=== PATIENT | female | born 1990 | race African-American/Black ===

== ENCOUNTER 2016-04-08 10:00 | Emergency (ER) | payer MEDICAID ==
[2016-04-08] MEDS ORDERED: ASPIRIN 81 MG TABLET, CHEWABLE PO ONE (10:17)
--- NOTE | 2016-04-08 10:19 | ER Document Report ---
ED Medical Screen (RME) - General Stated Complaint: CHEST PAIN,NAUSEA Time seen by provider: 10:13 Mode of Arrival: Ambulatory Information source: Patient Notes: 26-year-old smoker, hypertensive, asthmatic female complaining of retrosternal left-sided chest pain that woke her up at 9:00. The pain has been intermittent lasting 20-30 minutes for 3 days. She is moaning, rocking, shaking her hand stating she is not anxious but the pain is 5/5. Taking deep breaths makes it better. No family history of IN or coronary artery disease. Lungs are clear and triaged. I have greeted and performed a rapid initial assessment of this patient. A comprehensive ED assessment, evaluation of the patient, analysis of test results , and completion of the medical decision making process will be contacted by additional ED providers. TRAVEL OUTSIDE OF THE [place] IN LAST 30 DAYS: No - Related Data Allergies/Adverse Reactions: No Known Allergies Allergy (Verified 10/01/13 12:05) Past Medical History - Past Medical History Cardiac Medical History: Reports: Hx Hypertension Pulmonary Medical History: Reports: Hx Asthma Past Surgical History: Reports: Hx Section - Immunizations Hx Diphtheria, Pertussis, Tetanus Vaccination: Yes Physical Exam - Vital signs Vitals: Temp Pulse Resp BP Pulse Ox 97.9 F 72 20 149/101 H 100 04/08/16 10:12 04/08/16 10:12 04/08/16 10:12 04/08/16 10:12 04/08/16 10:12 Course - Vital Signs Vital signs: Temp Pulse Resp BP Pulse Ox 97.9 F 74 20 149/101 H 100 04/08/16 10:14 04/08/16 10:14 04/08/16 10:12 04/08/16 10:14 04/08/16 10:14
--- NOTE | 2016-04-08 11:14 | EKG REPORT ---
SEVERITY:- NORMAL ECG - SINUS RHYTHM : Confirmed by: Yaniv Watts MD 08-Apr-2016 11:14:06
[2016-04-08 11:15] LABS: ABSOLUTE EOSINOPHILS # (AUTO) 0.5 10^3/uL (0.0-0.6); ABSOLUTE LYMPHOCYTES (AUTO) 1.5 10^3/uL (0.5-4.7); ABSOLUTE MONOCYTES (AUTO) 0.5 10^3/uL (0.1-1.4); ABSOLUTE NEUT (AUTO) 1.7 10^3/uL (1.7-8.2); BASOPHILS % (AUTO) 0.7 % (0-2); EOSINOPHILS % (AUTO) 12.9 % (0-6); HEMATOCRIT 32.8 % (36.0-47.0); HEMOGLOBIN 10.8 g/dL (12.0-15.5); HGB HCT DIFFERENCE -0.4; LYMPHOCYTES % (AUTO) 34.7 % (13-45); MEAN CORPUSCULAR HEMOGLOBIN 28.7 pg (27.0-33.4); MEAN CORPUSCULAR HGB CONC 32.8 g/dL (32.0-36.0); MEAN CORPUSCULAR VOLUME 87 fl (80-97); MONOCYTES % (AUTO) 11.9 % (3-13); RED BLOOD COUNT 3.76 10^6/uL (3.72-5.28); RED CELL DISTRIBUTION WIDTH 15.3 % (11.5-14.0); SEGMENTED NEUTROPHILS % (AUTO) 39.8 % (42-78); WHITE BLOOD COUNT 4.3 10^3/uL (4.0-10.5)
[2016-04-08 11:25] LABS: ALANINE AMINOTRANSFERASE 24 U/L (9-52); ALBUMIN 3.8 g/dL (3.5-5.0); ALKALINE PHOSPHATASE 160 U/L (38-126); ANION GAP 7 (5-19); ASPARTATE AMINO TRANSFERASE 49 U/L (14-36); BILIRUBIN,TOTAL 0.9 mg/dL (0.2-1.3); BLOOD UREA NITROGEN 12 mg/dL (7-20); CALCIUM 8.9 mg/dL (8.4-10.2); CARBON DIOXIDE 24 mmol/L (22-30); CHLORIDE 107 mmol/L (98-107); CREATINE KINASE 151 U/L (30-135); CREATININE RESULT 0.72 mg/dL (0.52-1.25); GLUCOSE 75 mg/dL (75-110); POTASSIUM 4.3 mmol/L (3.6-5.0); SODIUM 138.2 mmol/L (137-145); TOTAL PROTEIN 7.7 g/dL (6.3-8.2)
[2016-04-08 11:37] LABS: CREATINE KINASE MB < 0.22 ng/mL (<4.55); TROPONIN I < 0.012 ng/mL
[2016-04-08] MEDS ORDERED: IPRATROPIUM/ALBUTEROL 0.5-2.5 MG/3 ML AMPUL NEB ONE (11:45)
--- NOTE | 2016-04-08 11:46 | ER Document Report ---
ED General - General Chief Complaint: Chest Pain Stated Complaint: CHEST PAIN,NAUSEA Time seen by provider: 11:43 Mode of Arrival: Ambulatory Information source: Patient Notes: This is a 26-year-old female with a history of hypertension, asthma presents to the emergency room with left-sided, nonradiating, sharp chest pain. Patient states that the pain is worse with palpation and better with deep inspirations. She denies any shortness of breath, abdominal pain, calf pain or swelling. Patient states she did feel little nauseated yesterday. TRAVEL OUTSIDE OF THE [place] IN LAST 30 DAYS: No - HPI Onset: Last week Onset/Duration: Gradual Quality of pain: Sharp Severity: Mild Pain Level: 1 Associated symptoms: Chills, Nonproductive cough. denies: Fever, Shortness of breath Exacerbated by: Denies Relieved by: Denies Similar symptoms previously: Yes Recently seen / treated by doctor: Yes - Related Data Allergies/Adverse Reactions: No Known Allergies Allergy (Verified 10/01/13 12:05) Past Medical History - General Information source: Patient - Social History Smoking Status: Former Smoker Cigarette use (# per day): No Chew tobacco use (# tins/day): No Frequency of alcohol use: None Drug Abuse: None Lives with: Family Family History: Reviewed & Not Pertinent Patient has suicidal ideation: No Patient has homicidal ideation: No - Past Medical History Cardiac Medical History: Reports: Hx Hypertension Pulmonary Medical History: Reports: Hx Asthma Neurological Medical History: Reports: None Endocrine Medical History: Reports: None Renal/ Medical History: Denies: Hx Peritoneal Dialysis Malignancy Medical History: Reports: None GI Medical History: Reports: None Musculoskeltal Medical History: Reports None Skin Medical History: Reports None Psychiatric Medical History: Reports: None Traumatic Medical History: Reports: None Infectious Medical History: Reports: None Past Surgical History: Reports: Hx Section - Immunizations Hx Diphtheria, Pertussis, Tetanus Vaccination: Yes Review of Systems - Review of Systems Constitutional: denies: Chills, Fever EENT: No symptoms reported Cardiovascular: See HPI Respiratory: See HPI Gastrointestinal: No symptoms reported Genitourinary: No symptoms reported Female Genitourinary: No symptoms reported Musculoskeletal: See HPI Skin: No symptoms reported Hematologic/Lymphatic: No symptoms reported Neurological/Psychological: No symptoms reported Physical Exam - Vital signs Vitals: Temp Pulse Resp BP Pulse Ox 97.9 F 72 20 149/101 H 100 04/08/16 10:12 04/08/16 10:12 04/08/16 10:12 04/08/16 10:12 04/08/16 10:12 Notes: Physical exam: GENERAL: 26-year-old female, alert and oriented 3, no acute distress. Oxygen saturation 100% on room air. HEAD: Atraumatic, normocephalic. EYES: Pupils equal round and reactive to light, extraocular movements intact, sclera anicteric, conjunctiva are normal. ENT: TMs normal, nares patent, oropharynx clear without exudates. Moist mucous membranes. NECK: Normal range of motion, supple without lymphadenopathy or JVD. LUNGS: Breath sounds clear to auscultation bilaterally and equal. No wheezes rales or rhonchi. Chest wall: Patient does have point tenderness over the anterior portion of the chest wall. There is no crepitus. HEART: Regular rate and rhythm without murmurs, rubs or gallops. ABDOMEN: Soft, normoactive bowel sounds. No tenderness to palpation. No guarding, no rebound. No masses appreciated. EXTREMITIES: Normal range of motion, no pitting or edema. No clubbing or cyanosis. NEUROLOGICAL: Cranial nerves II through XII grossly intact. Normal speech, normal gait. PSYCH: Normal mood, normal affect. SKIN: Warm, Dry, normal turgor, no rashes or lesions noted. Course - Vital Signs Vital signs: Temp Pulse Resp BP Pulse Ox 98.5 F 74 20 135/97 H 100 04/08/16 15:25 04/08/16 10:14 04/08/16 15:25 04/08/16 15:25 04/08/16 15:25 - Laboratory Result Diagrams: 04/08/16 10:45 04/08/16 10:45 Laboratory results interpreted by me: 04/08/16 04/08/16 10:45 10:45 Hgb 10.8 L Hct 32.8 L RDW 15.3 H Seg Neutrophils % 39.8 L Eosinophils % 12.9 H AST 49 H Alkaline Phosphatase 160 H Creatine Kinase 151 H - Diagnostic Test Radiology reviewed: Image reviewed, Reports reviewed - Chest x-ray shows no infiltrates - EKG Interpretation by Or Rate: Normal Rhythm: NSR - EKG shows normal sinus rhythm with a ventricular rate of 71, no acute ST-T wave changes Discharge - Discharge Clinical Impression: chest wall pain, viral syndrome Condition: Stable Disposition: HOME, SELF-CARE Instructions: Chest Wall Pain ([facility]) Additional Instructions: Rest, drink plenty of fluids, take ibuprofen. Take Percocet as needed for pain not relieved with the ibuprofen. Return to the emergency room for worsening pain, shortness of breath or any concerns he getting worse. Prescriptions: Oxycodone HCl/Acetaminophen [Percocet 5-325 mg Tablet] 1 - 2 tab PO ASDIR PRN # 15 tablet PRN Reason: Forms: Elevated Blood Pressure, Return to Work
[2016-04-08 15:34] VITALS: BP 135/97
== END 2016-04-08 15:34 | disposition home or self-care (01) ==
LOC: ER 10:00
DX: R07.89 Other chest pain (principal); B34.9 Viral infection, unspecified; R11.0 Nausea; I10 Essential (primary) hypertension; J45.909 Unspecified asthma, uncomplicated; Z87.891 Personal history of nicotine dependence
CPT/HCPCS: 93005; 94640; 99285; 36415; 82553; 82550; 84702; 85025; 80053; 84484; 85379; 71020; 93010; J7620

== ENCOUNTER → 2016-06-19 | Outpatient (CLI) | payer MEDICAID ==
[2016-06-19 20:27] LABS: CHLAM PCR NOT DETECTED (NOT DETECT)
== END ==
LOC: LAB 18:52
PROVIDERS: ATTEND Nurse Practitioner Acute Care
DX: Z20.2 Contact with and (suspected) exposure to infections with a predominantly sexual mode of transmission (principal)
CPT/HCPCS: 87210; 87491; 87591

== ENCOUNTER 2016-08-20 16:09 | Emergency (ER) | payer MEDICAID ==
[2016-08-20] MEDS ORDERED: ONDANSETRON 4 MG TAB.RAPDIS PO ONE (18:42)
[2016-08-20] MEDS ORDERED: ACETAMINOPHEN 325 MG TABLET PO ONE (18:42)
--- NOTE | 2016-08-20 19:55 | RADIOLOGY REPORT (SQ) ---
EXAM DESCRIPTION: CT HEAD WITHOUT COMPLETED DATE/TIME: 08/20/2016 7:48 pm REASON FOR STUDY: fall, h/i COMPARISON: None. TECHNIQUE: Axial images acquired through the brain without intravenous contrast. Images reviewed wi th bone, brain and subdural windows. Images stored on PACS. All CT scanners at this facility use dose modulation, iterative reconstruction, and/or weight based d osing when appropriate to reduce radiation dose to as low as reasonably achievable (ALARA). [facility]: Dose Right [facility]: CareDose [facility]: Dose Right [facility]: Teradose 4D [facility]: Smart [employer] RADIATION DOSE: Up-to-date CT equipment and radiation dose reduction techniques were employed. CTDIv ol: 64.6 mGy. DLP: 1163 mGy-cm. mGy. LIMITATIONS: None. FINDINGS: VENTRICLES: Normal size and contour. CEREBRUM: No masses. No hemorrhage. No midline shift. Normal trevizo/white matter differentiation. N o evidence for acute infarction. CEREBELLUM: No masses. No hemorrhage. No alteration of density. No evidence for acute infarction. EXTRAAXIAL SPACES: No fluid collections. No masses. ORBITS AND GLOBE: No intra- or extraconal masses. Normal contour of globe without masses. CALVARIUM: No fracture. PARANASAL SINUSES: No fluid or mucosal thickening. SOFT TISSUES: No mass or hematoma. OTHER: No other significant finding. IMPRESSION: NORMAL BRAIN CT WITHOUT CONTRAST. TECHNICAL DOCUMENTATION: JOB ID: [id number] Quality ID # [id number]: Final reports with documentation of one or more dose reduction techniques (e.g., Au tomated exposure control, adjustment of the mA and/or kV according to patient size, use of iterative reconstruction technique) 2010 [employer]- All Rights Reserved
[2016-08-20 20:09] LABS: ABSOLUTE EOSINOPHILS # (AUTO) 0.5 10^3/uL (0.0-0.6); ABSOLUTE LYMPHOCYTES (AUTO) 2.2 10^3/uL (0.5-4.7); ABSOLUTE MONOCYTES (AUTO) 0.7 10^3/uL (0.1-1.4); ABSOLUTE NEUT (AUTO) 2.7 10^3/uL (1.7-8.2); BASOPHILS % (AUTO) 0.5 % (0-2); EOSINOPHILS % (AUTO) 8.4 % (0-6); HEMATOCRIT 36.5 % (36.0-47.0); HEMOGLOBIN 11.4 g/dL (12.0-15.5); HGB HCT DIFFERENCE -2.3; LYMPHOCYTES % (AUTO) 35.4 % (13-45); MEAN CORPUSCULAR HEMOGLOBIN 26.5 pg (27.0-33.4); MEAN CORPUSCULAR HGB CONC 31.2 g/dL (32.0-36.0); MEAN CORPUSCULAR VOLUME 85 fl (80-97); MONOCYTES % (AUTO) 11.9 % (3-13); RED BLOOD COUNT 4.29 10^6/uL (3.72-5.28); RED CELL DISTRIBUTION WIDTH 16.7 % (11.5-14.0); SEGMENTED NEUTROPHILS % (AUTO) 43.8 % (42-78); WHITE BLOOD COUNT 6.1 10^3/uL (4.0-10.5)
[2016-08-20 20:26] LABS: ANION GAP 12 (5-19); BLOOD UREA NITROGEN 12 mg/dL (7-20); CALCIUM 9.5 mg/dL (8.4-10.2); CARBON DIOXIDE 23 mmol/L (22-30); CHLORIDE 105 mmol/L (98-107); CREATININE RESULT 0.79 mg/dL (0.52-1.25); GLUCOSE 88 mg/dL (75-110); POTASSIUM 4.2 mmol/L (3.6-5.0); SODIUM 140.1 mmol/L (137-145)
[2016-08-20 20:33] LABS: APPEARANCE,URINE CLEAR; BILIRUBIN,URINE NEGATIVE (NEGATIVE); GLUCOSE, URINE NEGATIVE (NEGATIVE); KETONES,URINE TRACE mg/dL (NEGATIVE); LEUKOCYTE ESTERASE,URINE NEGATIVE (NEGATIVE); NITRITE,URINE NEGATIVE (NEGATIVE); PROTEIN,URINE NEGATIVE (NEGATIVE); URINE SPECIFIC GRAVITY 1.026
--- NOTE | 2016-08-20 20:42 | ER Document Report ---
ED General - General Chief Complaint: Pain All Over Stated Complaint: PAIN ALL OVER Time Seen by Provider: 08/20/16 18:14 Notes: patient is a 26 year old female who presents with abdominal pain and fall. patient states she fell at work yesterday down a flight of stairs, she admits to headache and knee pain, body aches all over but able to move all extremities without difficulty, no abnl sensation TRAVEL OUTSIDE OF THE [place] IN LAST 30 DAYS: No - HPI Onset: Yesterday - fell at work down stairs, unsure of how many, admits to h/i. Unsure of LOC. Admits to confusion, dizzyness, nausea without vomiting - Related Data Allergies/Adverse Reactions: No Known Allergies Allergy (Verified 08/20/16 16:48) Past Medical History - Social History Smoking Status: Unknown if Ever Smoked Family History: Reviewed & Not Pertinent Patient has suicidal ideation: No Patient has homicidal ideation: No - Past Medical History Cardiac Medical History: Reports: Hx Hypertension Pulmonary Medical History: Reports: Hx Asthma Renal/ Medical History: Denies: Hx Peritoneal Dialysis Past Surgical History: Reports: Hx Section - Immunizations Hx Diphtheria, Pertussis, Tetanus Vaccination: Yes Review of Systems - Review of Systems Constitutional: No symptoms reported Cardiovascular: No symptoms reported Respiratory: No symptoms reported Gastrointestinal: No symptoms reported Musculoskeletal: No symptoms reported Neurological/Psychological: See HPI Physical Exam - Vital signs Vitals: Temp Pulse Resp BP Pulse Ox 98.4 F 62 18 147/81 H 100 08/20/16 16:48 08/20/16 16:48 08/20/16 16:48 08/20/16 16:48 08/20/16 16:48 - Notes Notes: PHYSICAL EXAM GENERAL: Alert, interacts well. HEAD: Normocephalic, atraumatic. EYES: Pupils equal, round, and reactive to light. Extraocular movements intact. ENT: Oral mucosa moist, tongue midline. NECK: Full range of motion. Supple. Trachea midline. LUNGS: Clear to auscultation bilaterally, no wheezes, rales, or rhonchi. No respiratory distress. HEART: Regular rate and rhythm. No murmurs, gallops, or rubs. ABDOMEN: Soft, nondistended, nontender. No guarding, rebound, or rigidity.. Bowel sounds present in all 4 quadrants. EXTREMITIES: Moves all 4 extremities spontaneously. No edema, radial and dorsalis pedis pulses 2/4 bilaterally. No cyanosis. NEUROLOGICAL: Alert and oriented x4. Normal speech. PSYCH: Normal affect, normal mood. SKIN: Warm, dry, normal turgor. No rashes or lesions noted. Course - Re-evaluation Re-evalutation: 08/20/16 22:27 Patient does not have any focal neurologic deficits, nuchal rigidity, vital signs are within normal limits no papilledema. Patient is otherwise no acute distress and hemodynamically stable. Low index for suspicion of acute subarachnoid hemorrhage, meningitis or mass. Low suspicion for acute life- threatening etiology with intact neuro exam therefore no additional imaging or laboratory testing is indicated. Will discharge patient home with strict follow -up with PCP within the next week. - Vital Signs Vital signs: Temp Pulse Resp BP Pulse Ox 97.5 F 58 L 18 131/68 H 100 08/20/16 22:02 08/20/16 22:02 08/20/16 22:02 08/20/16 22:02 08/20/16 22:02 - Laboratory Result Diagrams: 08/20/16 19:55 08/20/16 19:55 Laboratory results interpreted by me: 08/20/16 08/20/16 19:55 19:55 Hgb 11.4 L MCH 26.5 L MCHC 31.2 L RDW 16.7 H Eosinophils % 8.4 H Urine Ketones TRACE H Urine Urobilinogen 4.0 H - Diagnostic Test Radiology reviewed: Image reviewed, Reports reviewed Discharge - Discharge Clinical Impression: Fall Condition: Good Disposition: HOME, SELF-CARE Instructions: Head Injury Precautions ([facility]), OTC Antihistamines ([facility]), Acetaminophen Additional Instructions: Follow up with your primary care physician in 3-5 days Forms: Return to Work
[2016-08-20 22:05] VITALS: BP 131/68
== END 2016-08-20 22:05 | disposition home or self-care (01) ==
LOC: ER 16:09
DX: R10.9 Unspecified abdominal pain (principal); R51 Headache; M25.569 Pain in unspecified knee; W10.9XXA Fall (on) (from) unspecified stairs and steps, initial encounter; Y99.0 Civilian activity done for income or pay; R42 Dizziness and giddiness; R41.0 Disorientation, unspecified; R11.2 Nausea with vomiting, unspecified; I10 Essential (primary) hypertension; J45.909 Unspecified asthma, uncomplicated
CPT/HCPCS: 99284; 36415; 84702; 85025; 80048; 81001; 70450; J3490; S0119

== ENCOUNTER 2016-10-26 18:51 | Emergency (ER) | payer MEDICAID ==
--- NOTE | 2016-10-26 19:50 | ER Document Report ---
ED General - General Chief Complaint: Abdominal Pain Stated Complaint: ABDOMINAL PAIN Time Seen by Provider: 10/26/16 19:32 TRAVEL OUTSIDE OF THE [place] IN LAST 30 DAYS: No - HPI Notes: Patient is a 26-year-old female presents the ED complaining of left lower pelvic discomfort 1 day, and home urine test positive yesterday. Patient states that she is a high-risk and usually requests rhogam because of her negative status. The pain does not radiate and is described as sharp. The pain is intermittent. Patient states that she is just trying to be cautious because of her medical history. Patient is otherwise eating and drinking without difficulties. She is urinating without any discomfort or bleeding. She denies any vaginal discharge or bleeding/odor. Her bowel movements have been regular. Denies any headache, fever, URI, sore throat, chest pain, palpitations, syncope, cough, shortness of breath, wheeze, dyspnea, nausea/vomiting/diarrhea, urinary retention, loss of control of bowel or bladder , numbness/tingling, or rash. - Related Data Allergies/Adverse Reactions: No Known Allergies Allergy (Verified 08/20/16 16:48) Past Medical History - Social History Smoking Status: Never Smoker Family History: Reviewed & Not Pertinent Patient has suicidal ideation: No Patient has homicidal ideation: No - Past Medical History Cardiac Medical History: Reports: Hx Hypertension Pulmonary Medical History: Reports: Hx Asthma Renal/ Medical History: Denies: Hx Peritoneal Dialysis Past Surgical History: Reports: Hx Section - Immunizations Hx Diphtheria, Pertussis, Tetanus Vaccination: Yes Review of Systems - Review of Systems Notes: REVIEW OF SYSTEMS: CONSTITUTIONAL : Denies fever, chills, or sweats. Denies recent illness. EENT: Denies eye, ear, throat, or mouth pain or symptoms. Denies nasal or sinus congestion or discharge. Denies throat, tongue, or mouth swelling or difficulty swallowing. CARDIOVASCULAR: Denies chest pain. Denies palpitations or racing or irregular heart beat. Denies ankle edema. RESPIRATORY: Denies cough, cold, or chest congestion. Denies shortness of breath, difficulty breathing, or wheezing. GASTROINTESTINAL: see hpi GENITOURINARY: Denies difficulty urinating, painful urination, burning, frequency, blood in urine, or discharge. FEMALE GENITOURINARY: Denies vaginal bleeding, heavy or abnormal periods, irregular periods. Denies vaginal discharge or odor. MUSCULOSKELETAL: Denies back or neck pain or stiffness. Denies joint pain or swelling. SKIN: Denies rash, lesions or sores. NEUROLOGICAL: Denies confusion or altered mental status. Denies passing out or loss of consciousness. Denies dizziness or lightheadedness. Denies headache. Denies weakness or paralysis or loss of use of either side. Denies problems with gait or speech. Denies sensory loss, numbness, or tingling. ALL OTHER SYSTEMS REVIEWED AND NEGATIVE. Dictation was performed using [employer] voice recognition software Physical Exam - Vital signs Vitals: Temp Pulse Resp BP Pulse Ox 98.7 F 62 20 152/86 H 96 10/26/16 18:58 10/26/16 18:58 10/26/16 18:58 10/26/16 18:58 10/26/16 18:58 Notes: PHYSICAL EXAMINATION: GENERAL: Well-appearing, well-nourished and in no acute distress. LUNGS: Breath sounds clear to auscultation bilaterally and equal. No wheezes rales or rhonchi. HEART: Regular rate and rhythm without murmurs ABDOMEN: Soft, nondistended abdomen. No guarding, no rebound. No masses appreciated. Normal bowel sounds present. CVA tenderness negative bilaterally. + mild tenderness to the left suprapubic area. No rigidity. Female : No inguinal adenopathy. External genitalia without erythema, lesions , or masses. Vaginal mucosa pink with white d/c. Cervix parous, pink, and without obv discharge. Uterus is smooth. No adnexal tenderness. Musculoskeletal: LE's b/l: FROM to passive/active. Strength 5+/5. Extremities: No cyanosis/clubbing/edema b/l. Peripheral pulses 2+. Capillary refill less than 3 seconds. NEUROLOGICAL: Normal speech, normal gait. Normal sensory, motor exams PSYCH: Normal mood, normal affect. SKIN: Warm, Dry, normal turgor, no rashes or lesions noted. Course - Re-evaluation Re-evalutation: 10/26/16 23:12 Patient is an afebrile, well-hydrated, 26-year-old female who presents the ED 6 weeks as well as having trichomonas, UTI, and bacterial vaginosis. Vitals are stable. PE otherwise unremarkable. CBC, CMP unremarkable. Urinalysis showed bacteria and probable UTI. Transvaginal ultrasound revealed no acute pathology and an intrauterine . Zithromax 1 g and Rocephin 250 mg given IM today. I will send her home with a prescription for Flagyl to take twice a day for 1 week. Patient will be notified if her chlamydia/ gonorrhea tests come back positive. Patient may also call back in the morning to find out the results. Low suspicion/risk for acute appendicitis, bowel obstruction, acute cholecystitis, acute cholangitis, perforated diverticulitis, incarcerated hernia, pancreatitis, perforated ulcer, peritonitis, sepsis, pelvic inflammatory disease, ectopic , tubo-ovarian abscess, ovarian torsion, or other systemic emergent condition at this time. Patient is aware that her condition can change from initial presentation and she needs to monitor symptoms closely and seek medical attention if any acute changes. Conservative measures otherwise for symptoms. Recheck with OBGYN next week. Recheck with your PCM in 2-3 days. Return to the ED with any worsening/ concerning symptoms otherwise as reviewed in discharge. Patient is in agreement. - Vital Signs Vital signs: Temp Pulse Resp BP Pulse Ox 98.7 F 62 20 152/86 H 96 10/26/16 18:58 10/26/16 18:58 10/26/16 18:58 10/26/16 18:58 10/26/16 18:58 - Laboratory Result Diagrams: 10/26/16 20:02 10/26/16 20:40 Laboratory results interpreted by me: 10/26/16 10/26/16 10/26/16 19:15 20:02 20:02 Hgb 11.6 L Hct 35.6 L RDW 17.4 H Monocytes % 14.1 H Eosinophils % 9.0 H Glucose Alkaline Phosphatase Serum HCG, Qual POSITIVE H Beta HCG, Quant Urine Urobilinogen 4.0 H Ur Leukocyte Esterase SMALL H 10/26/16 20:40 Hgb Hct RDW Monocytes % Eosinophils % Glucose 68 L Alkaline Phosphatase 128 H Serum HCG, Qual Beta HCG, Quant 84912.00 H Urine Urobilinogen Ur Leukocyte Esterase Procedures - Pelvic Exam Pelvic exam Time completed: 22:45 Cultures obtained: Yes Wet prep obtained: Yes Herpes culture obtained: No Foreign body removed: No Bimanual exam performed: Yes - neg Witnessed by: female pct Discharge - Discharge Clinical Impression: Trichomonas infection, Bacterial vaginosis UTI (urinary tract infection) Qualifiers: Urinary tract infection type: site unspecified Hematuria presence: without hematuria Qualified Code(s): N39.0 - Urinary tract infection, site not specified Condition: Stable Disposition: HOME, SELF-CARE Instructions: Urinary Tract Infection ([facility]), Metronidazole ([facility]), Trichomonas Infection ([facility]), Vaginosis, Bacterial ([facility]), Follow-Up Care ([facility]) Additional Instructions: Push fluids (i.e. water, cranberry juice) Proper hygenic technique Keep the skin clean Tylenol/ibuprofen as needed May use over the counter AZO for burning with urination Take medications as directed F/u with your PCM in 2-3 days for a recheck Recheck with your OBGYN next week Consider consult with Urology. Return to the ED with any worsening symptoms and/or development of fever, headache, chest pain, palpitations, syncope, shortness of breath, trouble breathing, abdominal pain, n/v/d, blood in stool/urine, loss of control of bowel /bladder, urinary retention, muscle weakness/paralysis, saddle anesthesia, numbness/tingling, or other worsening symptoms that are concerning to you. Prescriptions: Cephalexin Monohydrate [Keflex 500 mg Capsule] 500 mg PO BID #14 capsule Metronidazole [Flagyl] 500 mg PO BID #14 tablet Forms: Elevated Blood Pressure Referrals: [facility] [Provider Group] - Follow up in 3-5 days
[2016-10-26 20:13] LABS: ABSOLUTE BASOPHILS # (AUTO) 0.1 10^3/uL (0.0-0.2); ABSOLUTE EOSINOPHILS # (AUTO) 0.6 10^3/uL (0.0-0.6); ABSOLUTE LYMPHOCYTES (AUTO) 1.8 10^3/uL (0.5-4.7); ABSOLUTE MONOCYTES (AUTO) 0.9 10^3/uL (0.1-1.4); BASOPHILS % (AUTO) 0.9 % (0-2); HEMATOCRIT 35.6 % (36.0-47.0); HEMOGLOBIN 11.6 g/dL (12.0-15.5); HGB HCT DIFFERENCE -0.8; LYMPHOCYTES % (AUTO) 28.4 % (13-45); MEAN CORPUSCULAR HEMOGLOBIN 28.5 pg (27.0-33.4); MEAN CORPUSCULAR HGB CONC 32.6 g/dL (32.0-36.0); MEAN CORPUSCULAR VOLUME 87 fl (80-97); MONOCYTES % (AUTO) 14.1 % (3-13); RED BLOOD COUNT 4.08 10^6/uL (3.72-5.28); RED CELL DISTRIBUTION WIDTH 17.4 % (11.5-14.0); SEGMENTED NEUTROPHILS % (AUTO) 47.6 % (42-78); WHITE BLOOD COUNT 6.2 10^3/uL (4.0-10.5)
[2016-10-26 20:32] LABS: APPEARANCE,URINE SLIGHTLY-CLOUDY; BILIRUBIN,URINE NEGATIVE (NEGATIVE); GLUCOSE, URINE NEGATIVE (NEGATIVE); KETONES,URINE NEGATIVE (NEGATIVE); LEUKOCYTE ESTERASE,URINE SMALL (NEGATIVE); NITRITE,URINE NEGATIVE (NEGATIVE); PROTEIN,URINE NEGATIVE (NEGATIVE); URINE SPECIFIC GRAVITY 1.027
[2016-10-26 21:12] LABS: ALANINE AMINOTRANSFERASE 24 U/L (9-52); ALKALINE PHOSPHATASE 128 U/L (38-126); ANION GAP 13 (5-19); ASPARTATE AMINO TRANSFERASE 30 U/L (14-36); BILIRUBIN,DIRECT 0.3 mg/dL (0.0-0.4); BLOOD UREA NITROGEN 12 mg/dL (7-20); CALCIUM 9.9 mg/dL (8.4-10.2); CARBON DIOXIDE 23 mmol/L (22-30); CHLORIDE 103 mmol/L (98-107); CREATININE RESULT 0.76 mg/dL (0.52-1.25); GLUCOSE 68 mg/dL (75-110); POTASSIUM 4.4 mmol/L (3.6-5.0); SODIUM 138.7 mmol/L (137-145); TOTAL PROTEIN 7.7 g/dL (6.3-8.2)
--- NOTE | 2016-10-26 22:27 | RADIOLOGY REPORT (SQ) ---
EXAM DESCRIPTION: U/S OB TRANSVAG W/DOPPLER COMPLETED DATE/TIME: 10/26/2016 9:58 pm REASON FOR STUDY: LLQ pain, pt had home + pregn test COMPARISON: None. TECHNIQUE: Transvaginal static and realtime grayscale images acquired of the pelvis. Additional pravin cted spectral and color Doppler images recorded. All images stored on PACs. bHCG: Pending. LIMITATIONS: None. FINDINGS: FETUS: Living intrauterine . EGA: 6 weeks 4 days ERI: 06/17/2017 FHR: 118 beats per minute. SUBCHORIONIC BLEED: No. SIZE OF BLEED: Not applicable. UTERUS: No masses. No anomalies. CERVICAL LENGTH: 2.6 cm Closed. RIGHT ADNEXA: Normal ovary with normal vascular flow. No adnexal free fluid. No adnexal masses. LEFT ADNEXA: Normal ovary with normal vascular flow. Physiologic corpus luteal cyst identified. No adnexal free fluid. No adnexal masses. FREE FLUID: None. OTHER: No other significant finding. IMPRESSION: LIVING INTRAUTERINE . EGA 6 WEEKS 5 DAYS. Trimester of : First - 0 to 13 weeks. TECHNICAL DOCUMENTATION: JOB ID: [id number] [employer]- All Rights Reserved
[2016-10-26] MEDS ORDERED: LIDOCAINE 1% INJ-PF (10 MG/ML) 30 ML SDV INJ ONE (23:12)
[2016-10-26] MEDS ORDERED: AZITHROMYCIN 250 MG TABLET PO ONE (23:12)
[2016-10-26] MEDS ORDERED: CEFTRIAXONE INJ 1000 MG VIAL IM ONE ×2 (23:12→23:15)
[2016-10-27 00:26] LABS: CHLAM PCR NOT DETECTED (NOT DETECT)
[2016-10-27 00:54] VITALS: BP 142/80
== END 2016-10-26 23:55 | disposition home or self-care (01) ==
LOC: ER 18:51
DX: O23.591 Infection of other part of genital tract in pregnancy, first trimester (principal); B96.89 Other specified bacterial agents as the cause of diseases classified elsewhere; O23.41 Unspecified infection of urinary tract in pregnancy, first trimester; O98.311 Other infections with a predominantly sexual mode of transmission complicating pregnancy, first trimester; A59.9 Trichomoniasis, unspecified; O99.511 Diseases of the respiratory system complicating pregnancy, first trimester; O16.1 Unspecified maternal hypertension, first trimester; Z3A.01 Less than 8 weeks gestation of pregnancy
CPT/HCPCS: 99284; 96372; 86900; 86901; 36415; 87210; 86850; 84702; 83690; 84703; 85025; 80053; 81001; 87491; 87591; 76817; 93976; J2790; J0696; J3490

== ENCOUNTER 2016-12-11 16:07 | Emergency (ER) | payer MEDICAID ==
[2016-12-11] MEDS ORDERED: NORMAL SALINE 1000 ML 1,000 ML IV ONE ×2 (16:30→20:08)
--- NOTE | 2016-12-11 16:33 | ER Document Report ---
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 EMS was called and patient was brought to the emergency department. She states she still feels lightheaded. 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 She states that she has a history of high blood pressure and is supposed be taking medications but has not taken any medicine for her blood pressure in 4 months. This is because she was on lisinopril and cannot take it while she is currently . She states she has had no recent abdominal pain. No vaginal bleeding or discharge. She states she has a high risk because she is Rh-. She states she has had an ultrasound with this already at approximately 6 weeks and was told everything was okay. It was done in the clinic. She states she is currently about 16 weeks she believes. TRAVEL OUTSIDE OF THE [place] IN LAST 30 DAYS: No - Related Data Allergies/Adverse Reactions: No Known Allergies Allergy (Verified 12/11/16 16:16) Past Medical History - Social History Frequency of alcohol use: None Drug Abuse: None - Past Medical History Cardiac Medical History: Reports: Hx Hypertension Pulmonary Medical History: Reports: Hx Asthma Renal/ Medical History: Denies: Hx Peritoneal Dialysis Past Surgical History: Reports: Hx Section - Immunizations Hx Diphtheria, Pertussis, Tetanus Vaccination: Yes Physical Exam - Vital signs Vitals: Temp Pulse BP Pulse Ox 98.4 F 84 128/79 H 100 12/11/16 16:16 12/11/16 16:16 12/11/16 16:16 12/11/16 16:16 Course - Vital Signs Vital signs: Temp Pulse Resp BP Pulse Ox 98.4 F 84 128/79 H 100 12/11/16 16:16 12/11/16 16:16 12/11/16 16:16 12/11/16 16:16
[2016-12-11 16:51] LABS: ABSOLUTE EOSINOPHILS # (AUTO) 0.6 10^3/uL (0.0-0.6); ABSOLUTE LYMPHOCYTES (AUTO) 1.9 10^3/uL (0.5-4.7); ABSOLUTE MONOCYTES (AUTO) 0.7 10^3/uL (0.1-1.4); ABSOLUTE NEUT (AUTO) 4.2 10^3/uL (1.7-8.2); BASOPHILS % (AUTO) 0.4 % (0-2); EOSINOPHILS % (AUTO) 8.4 % (0-6); HEMATOCRIT 37.4 % (36.0-47.0); HEMOGLOBIN 12.6 g/dL (12.0-15.5); HGB HCT DIFFERENCE 0.4; LYMPHOCYTES % (AUTO) 25.3 % (13-45); MEAN CORPUSCULAR HEMOGLOBIN 30.6 pg (27.0-33.4); MEAN CORPUSCULAR HGB CONC 33.8 g/dL (32.0-36.0); MEAN CORPUSCULAR VOLUME 90 fl (80-97); MONOCYTES % (AUTO) 9.8 % (3-13); RED BLOOD COUNT 4.14 10^6/uL (3.72-5.28); RED CELL DISTRIBUTION WIDTH 17.5 % (11.5-14.0); SEGMENTED NEUTROPHILS % (AUTO) 56.1 % (42-78); WHITE BLOOD COUNT 7.5 10^3/uL (4.0-10.5)
[2016-12-11 17:12] LABS: ALANINE AMINOTRANSFERASE 34 U/L (9-52); ALBUMIN 3.9 g/dL (3.5-5.0); ALKALINE PHOSPHATASE 133 U/L (38-126); ANION GAP 12 (5-19); ASPARTATE AMINO TRANSFERASE 38 U/L (14-36); BILIRUBIN,DIRECT 0.2 mg/dL (0.0-0.4); BILIRUBIN,TOTAL 0.6 mg/dL (0.2-1.3); BLOOD UREA NITROGEN 11 mg/dL (7-20); CALCIUM 9.8 mg/dL (8.4-10.2); CARBON DIOXIDE 21 mmol/L (22-30); CHLORIDE 106 mmol/L (98-107); GLUCOSE 79 mg/dL (75-110); POTASSIUM 4.6 mmol/L (3.6-5.0); SODIUM 138.7 mmol/L (137-145); TOTAL PROTEIN 7.6 g/dL (6.3-8.2)
[2016-12-11 18:16] LABS: APPEARANCE,URINE CLOUDY; BILIRUBIN,URINE NEGATIVE (NEGATIVE); GLUCOSE, URINE NEGATIVE (NEGATIVE); KETONES,URINE NEGATIVE (NEGATIVE); LEUKOCYTE ESTERASE,URINE SMALL (NEGATIVE); NITRITE,URINE NEGATIVE (NEGATIVE); PROTEIN,URINE NEGATIVE (NEGATIVE); URINE SPECIFIC GRAVITY 1.031
--- NOTE | 2016-12-11 18:20 | EKG REPORT ---
SEVERITY:- NORMAL ECG - SINUS RHYTHM : Confirmed by: Tricia Garsia MD 11-Dec-2016 18:20:21
[2016-12-11] MEDS ORDERED: ONDANSETRON HCL INJ/PF 4 MG/2 ML SDV IV ONE (18:24)
[2016-12-11] MEDS ORDERED: FAMOTIDINE 20 MG TABLET PO ONE (18:24)
--- NOTE | 2016-12-11 18:25 | ER Document Report ---
ED General - General Chief Complaint: Low Blood Pressure Stated Complaint: POSSIBLE SYNCOPE Time Seen by Provider: 12/11/16 16:29 Mode of Arrival: Ambulatory Information source: Patient TRAVEL OUTSIDE OF THE [place] IN LAST 30 DAYS: No - HPI Notes: Presents to ER, A&Ox4, with concern for near syncope at work is and low blood pressure, 110/70. Reports prior to the episode that occurred when she was standing she experienced visual changes, lightheadedness, generalized bilateral numbness in fingers, and patient "blacking out". 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 Reports she is high risk due to being RH negative. Reports she has HTN and is on medication lisinopril 5 mg daily that she has been on since she last gave 2 years ago. Reports she is not taking any medications right now, for the past four months, due to being told that she cannot take it with her . Breaths even and unlabored. Speaking in clear and complete sentences. NAD noted. Patient does report occasional episodes of nausea and vomiting. The patient was standing at work when she started feeling lightheaded prior to the near syncopal event. Patient denies any headache, neck pain or back pain or chest pain or palpitations. There was no complete syncope. The patient reports no vaginal bleeding or discharge. Patient states she currently feels better. - Related Data Allergies/Adverse Reactions: No Known Allergies Allergy (Verified 12/11/16 16:16) Past Medical History - General Information source: Patient - Social History Smoking Status: Never Smoker Frequency of alcohol use: None Drug Abuse: None Family History: Reviewed & Not Pertinent - Past Medical History Cardiac Medical History: Reports: Hx Hypertension Pulmonary Medical History: Reports: Hx Asthma Renal/ Medical History: Denies: Hx Peritoneal Dialysis Past Surgical History: Reports: Hx Section - Immunizations Hx Diphtheria, Pertussis, Tetanus Vaccination: Yes Review of Systems - Review of Systems Notes: REVIEW OF SYSTEMS: CONSTITUTIONAL : Denies fever, chills, or sweats. EENT: Denies eye, ear, throat, or mouth pain or symptoms. Denies nasal or sinus congestion or discharge. Denies throat, tongue, or mouth swelling or difficulty swallowing. CARDIOVASCULAR: Denies chest pain. Denies palpitations or racing or irregular heart beat. Denies ankle edema. RESPIRATORY: Denies cough, cold, or chest congestion. Denies shortness of breath, difficulty breathing, or wheezing. GASTROINTESTINAL: Denies abdominal pain or distention. Denies is is is diarrhea. Denies blood in vomitus, stools, or per rectum. Denies black, tarry stools. Denies constipation. GENITOURINARY: Denies difficulty urinating, painful urination, burning, frequency, blood in urine, or discharge. FEMALE GENITOURINARY: Denies vaginal bleeding, heavy or abnormal periods, irregular periods. Denies vaginal discharge or odor. MUSCULOSKELETAL: Denies back or neck pain or stiffness. Denies joint pain or swelling. SKIN: Denies rash, lesions or sores. HEMATOLOGIC : Denies easy bruising or bleeding. LYMPHATIC: Denies swollen, enlarged glands. NEUROLOGICAL: Denies confusion or altered mental status. Denies headache. Denies weakness or paralysis or loss of use of either side. Denies problems with gait or speech. Denies sensory loss, numbness, or tingling. Denies seizures. PSYCHIATRIC: Denies anxiety or stress. Denies depression, suicidal ideation, or homicidal ideation. ALL OTHER SYSTEMS REVIEWED AND NEGATIVE. Dictation was performed using [employer] voice recognition software Physical Exam - Vital signs Vitals: Temp Pulse BP Pulse Ox 98.4 F 84 128/79 H 100 12/11/16 16:16 12/11/16 16:16 12/11/16 16:16 12/11/16 16:16 - Notes Notes: PHYSICAL EXAMINATION: GENERAL: Well-appearing, well-nourished and in no acute distress. HEAD: Atraumatic, normocephalic. EYES: Pupils equal round and reactive to light, extraocular movements intact, conjunctiva are normal. ENT: Nares patent, oropharynx clear without exudates. Somewhat dry mucous membranes. NECK: Normal range of motion, supple without lymphadenopathy LUNGS: Breath sounds equal to auscultation bilaterally and equal. No rales or rhonchi. Scant wheeze consistent with previous history of asthma. HEART: Regular rate and rhythm without murmurs ABDOMEN: Soft, nontender abdomen. No guarding, no rebound. No masses appreciated. Gravid . Consistent with 14-15 weeks. Female : deferred Musculoskeletal: Normal range of motion, no pitting or edema. No cyanosis. NEUROLOGICAL: Cranial nerves grossly intact. Normal speech, normal gait. Normal sensory, motor exams. No cerebellar ataxia. PSYCH: Normal mood, normal affect. SKIN: Warm, Dry, normal turgor, no rashes or lesions noted. Course - Re-evaluation Re-evalutation: 12/11/16 20:18 Patient was rehydrated with 2 L of normal saline and was given IV Zofran and was given Pepcid and then patient was given IV Rocephin for UTI. Urine culture was taken. After rehydration, orthostatics were normal, and the patient felt stable for discharge. Patient was ambulatory without complaint. 12/11/16 21:10 We will treat the patient with Macrobid for UTI, pending urine culture. Will also write for Zofran. I see no reason for the patient to take lisinopril currently given her relative dehydration and near syncopal event experience today related to dehydration and slightly low blood pressure., and she will follow-up with regular practitioner related to her blood pressure management. No evidence of cardiac arrhythmia. - Vital Signs Vital signs: Temp Pulse Resp BP Pulse Ox 98.1 F 74 12 136/72 H 100 12/11/16 18:49 12/11/16 18:48 12/11/16 18:49 12/11/16 18:48 12/11/16 18:49 - Laboratory Result Diagrams: 12/11/16 16:37 12/11/16 16:37 Laboratory results interpreted by me: 12/11/16 12/11/16 12/11/16 16:37 16:37 17:40 RDW 17.5 H Eosinophils % 8.4 H Carbon Dioxide 21 L AST 38 H Alkaline Phosphatase 133 H Urine Urobilinogen 2.0 H Ur Leukocyte Esterase SMALL H - EKG Interpretation by Me Additional EKG results interpreted by me: 12/11/16 20:19 EKG as interpreted by me showed normal sinus rhythm heart rate of 82. There is no gross evidence for acute PA or ischemia identified. There was no significant change from previous EKG from 04/08/16. Discharge - Discharge Clinical Impression: Near syncope, Hyperemesis gravidarum, Dehydration Urinary tract infection Qualifiers: Urinary tract infection type: site unspecified Hematuria presence: without hematuria Qualified Code(s): N39.0 - Urinary tract infection, site not specified Vomiting Qualifiers: Vomiting type: unspecified Vomiting Intractability: non-intractable Nausea presence: with nausea Qualified Code(s): R11.2 - Nausea with vomiting, unspecified Condition: Stable Disposition: HOME, SELF-CARE Instructions: Antinausea Medication ([facility]), Urinary Tract Infection ([facility]), Hyperemesis Gravidarum ([facility]), Near Syncopal Episode ([facility]), Dehydration ([facility]) Additional Instructions: Drink plenty of fluids. Stand up slowly. Sit down if you feel lightheaded. Return to the emergency department case of fever, severe vomiting or weakness. Follow-up with your SONAR WATCHSTANDER regarding any blood pressure management, but the blood pressure of 110/70 and near syncopal event currently do not show evidence that you need to be on a antihypertensive medication. Prescriptions: Ondansetron [Zofran Odt 4 mg Tablet] 1 tab PO Q8HP PRN #10 tab.rapdis PRN Reason: For Nausea/Vomiting Nitrofurantoin/Nitrofuran Mac [Macrobid 100 mg Capsule] 1 tab PO BID #20 capsule Forms: Return to Work
[2016-12-11] MEDS ORDERED: CEFTRIAXONE INJ 1000 MG VIAL IV ONE (20:08)
[2016-12-11 21:38] VITALS: BP 122/78
== END 2016-12-11 21:35 | disposition home or self-care (01) ==
LOC: ER 16:07
DX: O99.280 Endocrine, nutritional and metabolic diseases complicating pregnancy, unspecified trimester (principal); E86.0 Dehydration; O99.419 Diseases of the circulatory system complicating pregnancy, unspecified trimester; I95.9 Hypotension, unspecified; O26.899 Other specified pregnancy related conditions, unspecified trimester; R55 Syncope and collapse; O21.9 Vomiting of pregnancy, unspecified; O23.40 Unspecified infection of urinary tract in pregnancy, unspecified trimester; O21.0 Mild hyperemesis gravidarum; O10.919 Unspecified pre-existing hypertension complicating pregnancy, unspecified trimester; O99.519 Diseases of the respiratory system complicating pregnancy, unspecified trimester; J45.909 Unspecified asthma, uncomplicated; Z3A.00 Weeks of gestation of pregnancy not specified
CPT/HCPCS: 93005; 99284; 96361; 96375; 96365; 36415; 87086; 83735; 85025; 87088; 80053; 81001; 93010; J3490; J0696; J2405; J7030

== ENCOUNTER 2017-01-18 18:56 | Emergency (ER) | payer MEDICAID ==
[2017-01-18 20:11] LABS: ABSOLUTE EOSINOPHILS # (AUTO) 0.7 10^3/uL (0.0-0.6); ABSOLUTE MONOCYTES (AUTO) 0.7 10^3/uL (0.1-1.4); ABSOLUTE NEUT (AUTO) 4.2 10^3/uL (1.7-8.2); BASOPHILS % (AUTO) 0.3 % (0-2); EOSINOPHILS % (AUTO) 9.3 % (0-6); HEMATOCRIT 36.1 % (36.0-47.0); HEMOGLOBIN 12.4 g/dL (12.0-15.5); HGB HCT DIFFERENCE 1.1; LYMPHOCYTES % (AUTO) 26.5 % (13-45); MEAN CORPUSCULAR HEMOGLOBIN 31.6 pg (27.0-33.4); MEAN CORPUSCULAR HGB CONC 34.4 g/dL (32.0-36.0); MEAN CORPUSCULAR VOLUME 92 fl (80-97); MONOCYTES % (AUTO) 9.5 % (3-13); RED BLOOD COUNT 3.93 10^6/uL (3.72-5.28); SEGMENTED NEUTROPHILS % (AUTO) 54.4 % (42-78); WHITE BLOOD COUNT 7.6 10^3/uL (4.0-10.5)
[2017-01-18 20:32] LABS: ALANINE AMINOTRANSFERASE 23 U/L (9-52); ALBUMIN 3.7 g/dL (3.5-5.0); ALKALINE PHOSPHATASE 109 U/L (38-126); ANION GAP 11 (5-19); ASPARTATE AMINO TRANSFERASE 26 U/L (14-36); BILIRUBIN,DIRECT 0.2 mg/dL (0.0-0.4); BILIRUBIN,TOTAL 0.6 mg/dL (0.2-1.3); BLOOD UREA NITROGEN 9 mg/dL (7-20); CALCIUM 9.8 mg/dL (8.4-10.2); CARBON DIOXIDE 24 mmol/L (22-30); CHLORIDE 105 mmol/L (98-107); CREATININE RESULT 0.73 mg/dL (0.52-1.25); GLUCOSE 70 mg/dL (75-110); POTASSIUM 4.3 mmol/L (3.6-5.0); SODIUM 139.8 mmol/L (137-145)
--- NOTE | 2017-01-18 20:34 | ER Document Report ---
ED General - General Chief Complaint: Abdominal Pain Stated Complaint: LOWER ABDOMINAL PAIN Time Seen by Provider: 01/18/17 19:48 TRAVEL OUTSIDE OF THE [place] IN LAST 30 DAYS: No - HPI Notes: Patient is a 26-year-old female who is approximately 18 weeks who presents the ED complaining of lower pelvic pain that is intermittent and bilateral x3 days. Patient has been to the ED 2 other occasions for similar symptoms. I did evaluate this patient in October she was found to have Trichomonas and bacterial vaginosis. Patient was evaluated a couple weeks ago for similar symptoms and was placed on Flagyl. She had a negative workup at that time. Patient states that she is still eating and drinking without difficulties. She still urinating normally and having normal bowel movements. Patient believes that she noticed a scant amount of blood when she wiped just after she urinated while in the ED. Patient states that she will have occasional nausea which is normal for her, but does not have any nausea right now. Patient denies any vaginal odor or discharge otherwise. Patient states that she does have an appointment with her LOCAL AREA NETWORK ADMINISTRATOR on Saturday. She has no other concerns or complaints at this time. Denies any drug allergies. Denies any headache, fever, URI, sore throat, chest pain, palpitations, syncope, cough, shortness of breath, wheeze, dyspnea, vomiting/diarrhea, urinary retention, dysuria, hematuria, back pain, loss of control of bowel or bladder, numbness/ tingling, saddle anesthesia, muscle paralysis/weakness, or rash. - Related Data Allergies/Adverse Reactions: No Known Allergies Allergy (Verified 01/18/17 19:00) Past Medical History - Social History Smoking Status: Former Smoker Frequency of alcohol use: Rare Drug Abuse: Marijuana Family History: Reviewed & Not Pertinent Patient has suicidal ideation: No Patient has homicidal ideation: No - Past Medical History Cardiac Medical History: Reports: Hx Hypertension Pulmonary Medical History: Reports: Hx Asthma Renal/ Medical History: Denies: Hx Peritoneal Dialysis Past Surgical History: Reports: Hx Section - Immunizations Hx Diphtheria, Pertussis, Tetanus Vaccination: Yes Review of Systems - Review of Systems Notes: REVIEW OF SYSTEMS: CONSTITUTIONAL : Denies fever, chills, or sweats. Denies recent illness. EENT: Denies eye, ear, throat, or mouth pain or symptoms. Denies nasal or sinus congestion or discharge. Denies throat, tongue, or mouth swelling or difficulty swallowing. CARDIOVASCULAR: Denies chest pain. Denies palpitations or racing or irregular heart beat. Denies ankle edema. RESPIRATORY: Denies cough, cold, or chest congestion. Denies shortness of breath, difficulty breathing, or wheezing. GASTROINTESTINAL: see hpi. Denies blood in vomitus, stools, or per rectum. Denies black, tarry stools. Denies constipation. GENITOURINARY: Denies difficulty urinating, painful urination, burning, frequency, blood in urine, or discharge. FEMALE GENITOURINARY: see hpi. Denies vaginal discharge or odor. MUSCULOSKELETAL: Denies back or neck pain or stiffness. Denies joint pain or swelling. SKIN: Denies rash, lesions or sores. NEUROLOGICAL: Denies confusion or altered mental status. Denies passing out or loss of consciousness. Denies dizziness or lightheadedness. Denies headache. Denies weakness or paralysis or loss of use of either side. Denies problems with gait or speech. Denies sensory loss, numbness, or tingling. ALL OTHER SYSTEMS REVIEWED AND NEGATIVE. Dictation was performed using [employer] voice recognition software Physical Exam - Vital signs Vitals: Temp Pulse Resp BP Pulse Ox 98.6 F 83 20 126/69 H 99 01/18/17 19:00 01/18/17 19:00 01/18/17 19:00 01/18/17 19:00 01/18/17 19:00 Notes: PHYSICAL EXAMINATION: GENERAL: Well-appearing, well-nourished and in no acute distress. A&Ox4 LUNGS: Breath sounds clear to auscultation bilaterally and equal. No wheezes rales or rhonchi. HEART: Regular rate and rhythm without murmurs, rubs, gallops. ABDOMEN: Soft, nondistended abdomen. No guarding, no rebound. No masses appreciated. Normal bowel sounds present. No CVA tenderness bilaterally. + mild tenderness to the b/l suprapubic area. Musculoskeletal: FROM to passive/active. Strength 5+/5. Extremities: No cyanosis, clubbing, or edema b/l. Peripheral pulses 2+. Capillary refill less than 3 seconds. NEUROLOGICAL: Normal speech, normal gait. Normal sensory, motor exams PSYCH: Normal mood, normal affect. SKIN: Warm, Dry, normal turgor, no rashes or lesions noted. Course - Re-evaluation Re-evalutation: 01/18/17 22:10 Patient is an afebrile, well-hydrated, 26-year-old female intermittent pelvic pain and an intrauterine at 19 weeks 2 days. Vitals are stable. PE is otherwise unremarkable. Patient is tolerating p.o. without any difficulties. CBC, CMP, Urinalysis was unremarkable for any acute pathology. Transvaginal ultrasound was unremarkable for any acute pathology. Tylenol given p.o. today. Patient's symptoms have improved. Low suspicion/risk for acute appendicitis, bowel obstruction, acute cholecystitis, acute cholangitis, perforated diverticulitis, incarcerated hernia, pancreatitis, perforated ulcer, peritonitis, sepsis, pelvic inflammatory disease, ectopic , tubo- ovarian abscess, ovarian torsion, or other systemic emergent condition at this time. Patient is aware that her condition can change from initial presentation and she needs to monitor symptoms closely and seek medical attention if any acute changes. Conservative measures otherwise for symptoms. Keep consult with OBGYN on Saturday. Recheck with your PCM in 3-5 days. Return to the ED with any worsening/concerning symptoms otherwise as reviewed in discharge. Patient is in agreement. - Vital Signs Vital signs: Temp Pulse Resp BP Pulse Ox 98.6 F 83 20 126/69 H 99 01/18/17 19:00 01/18/17 19:00 01/18/17 19:00 01/18/17 19:00 01/18/17 19:00 - Laboratory Result Diagrams: 01/18/17 19:55 01/18/17 19:55 Laboratory results interpreted by me: 01/18/17 01/18/17 01/18/17 19:55 19:55 20:48 RDW 15.0 H Eosinophils % 9.3 H Absolute Eosinophils 0.7 H Glucose 70 L Beta HCG, Quant 73218.00 H Urine Urobilinogen 2.0 H Discharge - Discharge Clinical Impression: Pelvic pain Condition: Stable Disposition: HOME, SELF-CARE Instructions: Pelvic Pain in ([facility]) Additional Instructions: Maintain fluid intake tylenol as needed Warm bathes may help Your labs and US appeared unremarkable today Keep your appointment with OBGYN on Saturday for a recheck and further evaluation Recheck with your PCM in 3-5 days Return to the ED with any worsening symptoms and/or development of fever, headache, chest pain, palpitations, syncope, shortness of breath, trouble breathing, abdominal pain, n/v/d, blood in stool/urine, vaginal cramping/ bleeding/odor/discharge, loss of control of bowel/bladder, urinary retention, or other worsening symptoms that are concerning to you. Forms: Elevated Blood Pressure Referrals: MICHAEL NICHOLS PA-C [Primary Care Provider] - Follow up as needed [facility] [Provider Group] - 01/21/17
[2017-01-18 21:15] LABS: AMORPHOUS SEDIMENT,URINE TRACE /HPF; APPEARANCE,URINE CLOUDY; BILIRUBIN,URINE NEGATIVE (NEGATIVE); GLUCOSE, URINE NEGATIVE (NEGATIVE); KETONES,URINE NEGATIVE (NEGATIVE); LEUKOCYTE ESTERASE,URINE NEGATIVE (NEGATIVE); NITRITE,URINE NEGATIVE (NEGATIVE); PROTEIN,URINE NEGATIVE (NEGATIVE); URINE SPECIFIC GRAVITY 1.018
--- NOTE | 2017-01-18 21:57 | RADIOLOGY REPORT (SQ) ---
EXAM DESCRIPTION: U/S OB 14+ TA/1 GEST W/DOPPLER COMPLETED DATE/TIME: 01/18/2017 9:13 pm REASON FOR STUDY: 18 weeks with left lower quadrant pain COMPARISON: OB ultrasound 10/26/2016 TECHNIQUE: Static and Dynamic grayscale imaging performed of gravid uterus using transabdominal appr oach. Additional selected color Doppler and spectral images recorded. All stored on PACS. LIMITATIONS: None. FINDINGS: EGA: By multiple measurements, 19 weeks 2 days ERI: Ultrasound due date 06/12/2017 EFW: 316 grams PERCENTILE: Not applicable. Fetus less than or equal to 20 weeks gestation. DAVID: Largest pocket 6 cm PLACENTA: Fundal anterior GRADE: I PRESENTATION: Breech ANATOMY: HEART RATE: 145 beats per minute. FOUR CHAMBER HEART: Visualized. THREE VESSEL CORD: Yes. CORD INSERTION: Visualized. KIDNEYS AND BLADDER: Visualized. Appear normal. STOMACH: Visualized. Appears normal. SPINE: Normal as visualized. BRAIN AND LATERAL VENTRICLES: Visualized. Appear normal. OTHER: No other significant finding. MATERNAL ADNEXA: Maternal ovaries not visualized. CERVICAL LENGTH: 4.8 cm Closed. OTHER: No other significant finding. IMPRESSION: LIVING INTRAUTERINE . ESTIMATED GESTATIONAL AGE 19 weeks 2 days NO VISUALIZED ANOMALIES. Trimester of : Second trimester - 13 weeks 1 day to 27 weeks 6 days. TECHNICAL DOCUMENTATION: JOB ID: [id number] [employer]- All Rights Reserved
[2017-01-18] MEDS ORDERED: ACETAMINOPHEN 325 MG TABLET PO ONE (22:06)
[2017-01-18 22:37] VITALS: BP 122/80
== END 2017-01-18 22:37 | disposition home or self-care (01) ==
LOC: ER 18:56
DX: O26.892 Other specified pregnancy related conditions, second trimester (principal); R10.2 Pelvic and perineal pain; R10.30 Lower abdominal pain, unspecified; Z3A.18 18 weeks gestation of pregnancy; Z87.891 Personal history of nicotine dependence
CPT/HCPCS: 99284; 36415; 84702; 85025; 80053; 81001; 76805; 93976; J3490

== ENCOUNTER 2017-02-09 16:29 | Outpatient (CLI) | payer MEDICAID ==
[2017-02-09 17:00] LABS: APPEARANCE,URINE SLIGHTLY-CLOUDY; BILIRUBIN,URINE NEGATIVE (NEGATIVE); GLUCOSE, URINE NEGATIVE (NEGATIVE); KETONES,URINE NEGATIVE (NEGATIVE); LEUKOCYTE ESTERASE,URINE NEGATIVE (NEGATIVE); NITRITE,URINE NEGATIVE (NEGATIVE); PROTEIN,URINE NEGATIVE (NEGATIVE); URINE SPECIFIC GRAVITY 1.019
[2017-02-09 17:14] LABS: URINE BARBITURATES SCREEN NEGATIVE; URINE METHADONE SCREEN NEGATIVE; URINE OPIATES LOW NEGATIVE; URINE PHENCYCLIDINE SCREEN NEGATIVE
--- NOTE | 2017-02-09 18:34 | RADIOLOGY REPORT (SQ) ---
EXAM DESCRIPTION: U/S OB LIMITED COMPLETED DATE/TIME: 02/09/2017 6:12 pm REASON FOR STUDY: cervical length for ctx COMPARISON: None. TECHNIQUE: Limited transvaginal grayscale ultrasound for evaluation of specific requested obstetrica l parameters. LIMITATIONS: None. FINDINGS: CERVICAL LENGTH: 5.1 cm Closed. DAVID: MVP equals 5.6 cm. FHR: 147 beats per minute. PRESENTATION: Cephalic. OTHER: No other significant findings. IMPRESSION: LIMITED OBSTETRICAL ULTRASOUND WITH MEASURED PARAMETERS DELINEATED ABOVE. Trimester of : Second trimester - 13 weeks 1 day to 27 weeks 6 days. TECHNICAL DOCUMENTATION: JOB ID: [id number] [employer]- All Rights Reserved
== END 2017-02-09 18:41 | disposition home or self-care (01) ==
LOC: LC 16:29
PROVIDERS: ATTEND Obstetrics & Gynecology
PROC: 4A1HXCZ Monitoring of Products of Conception, Cardiac Rate, External Approach (ICD-10-PCS; principal; 2017-02-09)
DX: Z34.92 Encounter for supervision of normal pregnancy, unspecified, second trimester (principal)
CPT/HCPCS: 76815; 80307; 81001

== ENCOUNTER 2017-02-24 16:21 | Outpatient (CLI) | payer MEDICAID ==
[2017-02-24 17:11] LABS: T.VAGINALIS (WET MOUNT) NO TRICHOMONAS SEEN; WBCS (WET MOUNT) 1+ WBCS SEEN; YEAST (WET MOUNT) NO YEAST SEEN
[2017-02-24 17:12] LABS: BACTERIA (WET MOUNT) 4+ BACTERIA SEEN; EPITHELIALS (WET MOUNT) 4+ EPITHELIALS SEEN
[2017-02-24 17:14] LABS: AMNISURE (ROM) NEGATIVE (NEGATIVE)
[2017-02-24] MEDS ORDERED: RINGERS SOLUTION,LACTATED 1,000 ML IV PRN (17:35)
[2017-02-24 17:41] LABS: ABSOLUTE EOSINOPHILS # (AUTO) 0.5 10^3/uL (0.0-0.6); ABSOLUTE LYMPHOCYTES (AUTO) 1.7 10^3/uL (0.5-4.7); ABSOLUTE MONOCYTES (AUTO) 0.6 10^3/uL (0.1-1.4); ABSOLUTE NEUT (AUTO) 3.8 10^3/uL (1.7-8.2); BASOPHILS % (AUTO) 0.4 % (0-2); EOSINOPHILS % (AUTO) 6.9 % (0-6); HEMATOCRIT 30.6 % (36.0-47.0); HEMOGLOBIN 10.4 g/dL (12.0-15.5); LYMPHOCYTES % (AUTO) 25.1 % (13-45); MEAN CORPUSCULAR HEMOGLOBIN 31.2 pg (27.0-33.4); MEAN CORPUSCULAR HGB CONC 33.9 g/dL (32.0-36.0); MEAN CORPUSCULAR VOLUME 92 fl (80-97); MONOCYTES % (AUTO) 9.6 % (3-13); PLATELET COUNT 221 10^3/uL (150-450); RED BLOOD COUNT 3.33 10^6/uL (3.72-5.28); RED CELL DISTRIBUTION WIDTH 13.9 % (11.5-14.0); TOTAL CELLS COUNTED % (AUTO) 100 %; WHITE BLOOD COUNT 6.6 10^3/uL (4.0-10.5)
[2017-02-24 18:00] LABS: ALANINE AMINOTRANSFERASE 19 U/L (9-52); ALBUMIN 3.3 g/dL (3.5-5.0); ALKALINE PHOSPHATASE 123 U/L (38-126); ANION GAP 8 (5-19); ASPARTATE AMINO TRANSFERASE 25 U/L (14-36); BILIRUBIN,DIRECT 0.2 mg/dL (0.0-0.4); BILIRUBIN,TOTAL 0.6 mg/dL (0.2-1.3); BLOOD UREA NITROGEN 7 mg/dL (7-20); CALCIUM 9.6 mg/dL (8.4-10.2); CARBON DIOXIDE 23 mmol/L (22-30); CHLORIDE 106 mmol/L (98-107); GLUCOSE 73 mg/dL (75-110); POTASSIUM 3.8 mmol/L (3.6-5.0); SODIUM 137.3 mmol/L (137-145); TOTAL PROTEIN 6.5 g/dL (6.3-8.2)
[2017-02-24 18:22] LABS: URINE AMPHETAMINES SCREEN NEGATIVE; URINE BARBITURATES SCREEN NEGATIVE; URINE BENZODIAZEPINES SCREEN NEGATIVE; URINE COCAINE SCREEN NEGATIVE; URINE MARIJUANA (THC) SCREEN NEGATIVE; URINE METHADONE SCREEN NEGATIVE; URINE PHENCYCLIDINE SCREEN NEGATIVE
[2017-02-24 18:28] LABS: AMORPHOUS SEDIMENT,URINE TRACE /HPF; APPEARANCE,URINE CLOUDY; BILIRUBIN,URINE NEGATIVE (NEGATIVE); COLOR,URINE YELLOW; GLUCOSE, URINE NEGATIVE (NEGATIVE); KETONES,URINE NEGATIVE (NEGATIVE); LEUKOCYTE ESTERASE,URINE NEGATIVE (NEGATIVE); NITRITE,URINE NEGATIVE (NEGATIVE); PROTEIN,URINE NEGATIVE (NEGATIVE); URINE SPECIFIC GRAVITY 1.019
[2017-02-24 18:36] LABS: CHLAM PCR NOT DETECTED (NOT DETECT); GON PCR NOT DETECTED (NOT DETECT)
--- NOTE | 2017-02-24 18:45 | RADIOLOGY REPORT (SQ) ---
EXAM DESCRIPTION: U/S OB LIMITED COMPLETED DATE/TIME: 02/24/2017 6:35 pm REASON FOR STUDY: 24wks, Cvx length - TV, FWB, pres COMPARISON: 02/09/2017 TECHNIQUE: Limited transvaginal grayscale ultrasound for evaluation of specific requested obstetrica l parameters. LIMITATIONS: None. FINDINGS: CERVICAL LENGTH: 4.9 cm Closed. DAVID: Largest pocket 4.3 cm. FHR: 108 beats per minute. PRESENTATION: Cephalic. OTHER: measurements correspond to a 24 week 3 day gestation with an estimated due date of 2017 IMPRESSION: LIMITED OBSTETRICAL ULTRASOUND WITH MEASURED PARAMETERS DELINEATED ABOVE. Trimester of : Second trimester - 13 weeks 1 day to 27 weeks 6 days. TECHNICAL DOCUMENTATION: JOB ID: [id number] [employer]- All Rights Reserved
== END 2017-02-24 21:01 | disposition home or self-care (01) ==
LOC: LC 16:21
PROVIDERS: ATTEND Student in an Organized Health Care Education/Training Program
PROC: 4A1HXCZ Monitoring of Products of Conception, Cardiac Rate, External Approach (ICD-10-PCS; principal; 2017-02-24)
DX: O47.02 False labor before 37 completed weeks of gestation, second trimester (principal); O23.592 Infection of other part of genital tract in pregnancy, second trimester; N76.0 Acute vaginitis; B96.89 Other specified bacterial agents as the cause of diseases classified elsewhere; Z3A.24 24 weeks gestation of pregnancy
CPT/HCPCS: 36415; 76815; 80053; 80307; 81001; 82731; 84112; 85025; 87086; 87210; 87491; 87591

== ENCOUNTER 2017-03-31 09:19 | Outpatient (CLI) | payer MEDICAID ==
[2017-03-31] MEDS ORDERED: PROCHLORPERAZINE MALEATE 10 MG TABLET ONE (10:01)
[2017-03-31] MEDS ORDERED: ACETAMINOPHEN 325 MG TABLET ONE (10:02)
[2017-03-31 10:09] LABS: APPEARANCE,URINE SLIGHTLY-CLOUDY; BILIRUBIN,URINE NEGATIVE (NEGATIVE); COLOR,URINE YELLOW; GLUCOSE, URINE NEGATIVE (NEGATIVE); KETONES,URINE TRACE mg/dL (NEGATIVE); LEUKOCYTE ESTERASE,URINE NEGATIVE (NEGATIVE); NITRITE,URINE NEGATIVE (NEGATIVE); PROTEIN,URINE 100 mg/dL (NEGATIVE); URINE SPECIFIC GRAVITY 1.026
[2017-03-31 10:23] LABS: URINE AMPHETAMINES SCREEN NEGATIVE; URINE BARBITURATES SCREEN NEGATIVE; URINE BENZODIAZEPINES SCREEN NEGATIVE; URINE COCAINE SCREEN NEGATIVE; URINE MARIJUANA (THC) SCREEN NEGATIVE; URINE METHADONE SCREEN NEGATIVE; URINE PHENCYCLIDINE SCREEN NEGATIVE
[2017-03-31] MEDS ORDERED: ALBUTEROL SULFATE HFA (90 MCG/PUFF) 200 PUFF/8.5 GM MDI IH ONE (11:00)
== END 2017-03-31 11:38 | disposition home or self-care (01) ==
LOC: LC 09:19
PROVIDERS: ATTEND Obstetrics & Gynecology
PROC: 4A1HXCZ Monitoring of Products of Conception, Cardiac Rate, External Approach (ICD-10-PCS; principal; 2017-03-31)
DX: O36.8130 Decreased fetal movements, third trimester, not applicable or unspecified (principal); O99.283 Endocrine, nutritional and metabolic diseases complicating pregnancy, third trimester; E86.0 Dehydration; R42 Dizziness and giddiness; Z3A.29 29 weeks gestation of pregnancy
CPT/HCPCS: 59899; 81001; 80307; J3490 ×2; S0183

== ENCOUNTER 2017-05-08 09:09 | Outpatient (CLI) | payer MEDICAID ==
[2017-05-08] MEDS ORDERED: RINGERS SOLUTION,LACTATED 1,000 ML IV PRN (09:32)
--- NOTE | 2017-05-08 10:09 | Non Stress Test Report ---
Non Stress Test Datetime Report Generated by CPN: 05/08/2017 10:09 DEMOGRAPHIC EGA NST: 34.3 INDICATION Indication for Study (NST) Other: LC MONITORING Monitor Explained: Monitor Explained; Test Explained; Patient Verbalized Understanding Time on Monitor: 05/08/2017 09:22 Time off Monitor: 05/08/2017 10:00 NST Duration: 38 NST INTERVENTIONS NST Interventions: PO Hydration; Reposition Patient Physician Notified NST: A Emmel CNM BABY A: [id number] BABY A Movement : Present Contraction Frequency : irregular FHR Baseline : 140 Accelerations : 15X15 Decelerations : None Variability : Moderate 6-25bpm NST Review: Meets Criteria for Reactive NST NST Review and Verified By : So Bellavancdonita RNC NST Results: Reactive NST REPORT Report Trigger: Send Report
[2017-05-08 10:22] LABS: T.VAGINALIS (WET MOUNT) NO TRICHOMONAS SEEN
[2017-05-08 10:23] LABS: BACTERIA (WET MOUNT) 4+ BACTERIA SEEN; EPITHELIALS (WET MOUNT) 4+ EPITHELIALS SEEN; WBCS (WET MOUNT) 1+ WBCS SEEN; YEAST (WET MOUNT) YEAST SEEN
[2017-05-08 10:42] LABS: ABSOLUTE EOSINOPHILS # (AUTO) 0.3 10^3/uL (0.0-0.6); ABSOLUTE LYMPHOCYTES (AUTO) 1.3 10^3/uL (0.5-4.7); ABSOLUTE MONOCYTES (AUTO) 0.5 10^3/uL (0.1-1.4); ABSOLUTE NEUT (AUTO) 3.9 10^3/uL (1.7-8.2); BASOPHILS % (AUTO) 0.2 % (0-2); EOSINOPHILS % (AUTO) 5.7 % (0-6); HEMATOCRIT 27.7 % (36.0-47.0); HEMOGLOBIN 9.2 g/dL (12.0-15.5); LYMPHOCYTES % (AUTO) 21.4 % (13-45); MEAN CORPUSCULAR HEMOGLOBIN 28.2 pg (27.0-33.4); MEAN CORPUSCULAR HGB CONC 33.1 g/dL (32.0-36.0); MEAN CORPUSCULAR VOLUME 85 fl (80-97); MONOCYTES % (AUTO) 7.6 % (3-13); PLATELET COUNT 221 10^3/uL (150-450); RED BLOOD COUNT 3.24 10^6/uL (3.72-5.28); RED CELL DISTRIBUTION WIDTH 13.7 % (11.5-14.0); SEGMENTED NEUTROPHILS % (AUTO) 65.1 % (42-78); TOTAL CELLS COUNTED % (AUTO) 100 %
[2017-05-08] MEDS ORDERED: METRONIDAZOLE 500 MG/NS RTU 100 ML IV ONE (10:44)
[2017-05-08 10:49] LABS: APPEARANCE,URINE CLEAR; BILIRUBIN,URINE NEGATIVE (NEGATIVE); COLOR,URINE STRAW; GLUCOSE, URINE NEGATIVE (NEGATIVE); KETONES,URINE NEGATIVE (NEGATIVE); LEUKOCYTE ESTERASE,URINE TRACE (NEGATIVE); NITRITE,URINE NEGATIVE (NEGATIVE); PROTEIN,URINE NEGATIVE (NEGATIVE); URINE SPECIFIC GRAVITY 1.004; UROBILINOGEN,URINE NEGATIVE mg/dL (<2.0)
[2017-05-08] MEDS ORDERED: ACETAMINOPHEN 325 MG TABLET ONE (10:50)
[2017-05-08 11:04] LABS: URINE AMPHETAMINES SCREEN NEGATIVE; URINE BARBITURATES SCREEN NEGATIVE; URINE BENZODIAZEPINES SCREEN NEGATIVE; URINE COCAINE SCREEN NEGATIVE; URINE MARIJUANA (THC) SCREEN NEGATIVE; URINE METHADONE SCREEN NEGATIVE; URINE PHENCYCLIDINE SCREEN NEGATIVE
[2017-05-08 11:51] LABS: CHLAM PCR NOT DETECTED (NOT DETECT); GON PCR DETECTED (NOT DETECT)
[2017-05-08] MEDS ORDERED: LIDOCAINE 1% INJ-PF (10 MG/ML) 30 ML SDV INFIL ONE (12:24)
[2017-05-08] MEDS ORDERED: CEFTRIAXONE INJ 250 MG VIAL IM ONE ×2 (12:24→13:30)
[2017-05-08] MEDS ORDERED: AZITHROMYCIN 250 MG TABLET PO ONE (12:24)
[2017-05-08] MEDS ORDERED: LIDOCAINE 1% INJ-PF (10 MG/ML) 30 ML SDV ONE (12:38)
[2017-05-08] MEDS ORDERED: AZITHROMYCIN 250 MG TABLET ONE (12:59)
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
[2017-05-08] MEDS ORDERED: LIDOCAINE HCL 1% INJ (FOR 250 MG VIAL) INJ ONE (13:30)
[2017-05-08] MEDS ORDERED: METRONIDAZOLE 500 MG/NS RTU 100 ML IV SCH (14:00)
[2017-05-08] MEDS ORDERED: METRONIDAZOLE 500 MG/NS RTU 500 MG in CONTAINER,EMPTY 1 EACH IV SCH (14:00)
== END 2017-05-08 13:37 | disposition home or self-care (01) ==
LOC: LC 09:09
PROVIDERS: ATTEND Obstetrics & Gynecology
PROC: 4A1HXCZ Monitoring of Products of Conception, Cardiac Rate, External Approach (ICD-10-PCS; principal; 2017-05-08)
DX: O47.03 False labor before 37 completed weeks of gestation, third trimester (principal); O98.813 Other maternal infectious and parasitic diseases complicating pregnancy, third trimester; B37.9 Candidiasis, unspecified; Z3A.34 34 weeks gestation of pregnancy
CPT/HCPCS: 59025; 36415; 87210; 85025; 81001; 80307; 87491; 87591; J3490 ×2; Q0144; J0696

== ENCOUNTER 2017-06-11 09:22 | Inpatient (IN) | payer MEDICAID ==
[2017-06-11 10:23] LABS: ABSOLUTE EOSINOPHILS # (AUTO) 0.1 10^3/uL (0.0-0.6); ABSOLUTE LYMPHOCYTES (AUTO) 1.8 10^3/uL (0.5-4.7); ABSOLUTE MONOCYTES (AUTO) 0.5 10^3/uL (0.1-1.4); ABSOLUTE NEUT (AUTO) 3.5 10^3/uL (1.7-8.2); BASOPHILS % (AUTO) 0.2 % (0-2); EOSINOPHILS % (AUTO) 2.5 % (0-6); HEMATOCRIT 28.2 % (36.0-47.0); LYMPHOCYTES % (AUTO) 29.9 % (13-45); MEAN CORPUSCULAR HEMOGLOBIN 25.6 pg (27.0-33.4); MEAN CORPUSCULAR HGB CONC 31.8 g/dL (32.0-36.0); MEAN CORPUSCULAR VOLUME 81 fl (80-97); MONOCYTES % (AUTO) 8.3 % (3-13); PLATELET COUNT 223 10^3/uL (150-450); RED BLOOD COUNT 3.51 10^6/uL (3.72-5.28); RED CELL DISTRIBUTION WIDTH 15.4 % (11.5-14.0); SEGMENTED NEUTROPHILS % (AUTO) 59.1 % (42-78); TOTAL CELLS COUNTED % (AUTO) 100 %; WHITE BLOOD COUNT 5.9 10^3/uL (4.0-10.5)
[2017-06-11 10:46] LABS: ALANINE AMINOTRANSFERASE 18 U/L (9-52); ALBUMIN 3.3 g/dL (3.5-5.0); ALKALINE PHOSPHATASE 178 U/L (38-126); ANION GAP 10 (5-19); ASPARTATE AMINO TRANSFERASE 22 U/L (14-36); BILIRUBIN,DIRECT 0.1 mg/dL (0.0-0.4); BILIRUBIN,TOTAL 0.7 mg/dL (0.2-1.3); BLOOD UREA NITROGEN 7 mg/dL (7-20); CARBON DIOXIDE 22 mmol/L (22-30); CHLORIDE 107 mmol/L (98-107); GLUCOSE 62 mg/dL (75-110); LDH 578 U/L (313-618); POTASSIUM 3.6 mmol/L (3.6-5.0); TOTAL PROTEIN 6.3 g/dL (6.3-8.2); URIC ACID 3.4 mg/dL (2.5-6.2)
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
[2017-06-11 11:43] LABS: APPEARANCE,URINE CLOUDY; BILIRUBIN,URINE NEGATIVE (NEGATIVE); COLOR,URINE YELLOW; GLUCOSE, URINE NEGATIVE (NEGATIVE); KETONES,URINE NEGATIVE (NEGATIVE); LEUKOCYTE ESTERASE,URINE TRACE (NEGATIVE); NITRITE,URINE NEGATIVE (NEGATIVE); PROTEIN,URINE 30 mg/dL (NEGATIVE); URINE SPECIFIC GRAVITY 1.021
[2017-06-11 11:55] LABS: URINE AMPHETAMINES SCREEN NEGATIVE; URINE BARBITURATES SCREEN NEGATIVE; URINE BENZODIAZEPINES SCREEN NEGATIVE; URINE COCAINE SCREEN NEGATIVE; URINE MARIJUANA (THC) SCREEN NEGATIVE; URINE METHADONE SCREEN NEGATIVE; URINE PHENCYCLIDINE SCREEN NEGATIVE
[2017-06-11 11:59] LABS: UR PRO/CREAT RATIO RESULT 0.2 mg/mg (0.0-0.2); URINE CREATININE 180.6 mg/dL (16-327); URINE PROTEIN 33.6 mg/dL (<12)
--- NOTE | 2017-06-11 12:28 | RADIOLOGY REPORT (SQ) ---
EXAM DESCRIPTION: U/S OB LIMITED COMPLETED DATE/TIME: 06/11/2017 11:22 am REASON FOR STUDY: DAVID- 39.2 WEEKS IUP COMPARISON: 02/24/2017 TECHNIQUE: Limited transabdominal grayscale ultrasound for evaluation of specific requested obstetri gonzalez parameters. LIMITATIONS: None. FINDINGS: CERVICAL LENGTH: Not visualized transabdominally. DAVID: 6.7 cm. FHR: 153 beats per minute. PRESENTATION: Cephalic. OTHER: Anterior placenta, grade 2 IMPRESSION: LIMITED OBSTETRICAL ULTRASOUND WITH MEASURED PARAMETERS DELINEATED ABOVE. Trimester of : Third trimester - 28 weeks to delivery. TECHNICAL DOCUMENTATION: JOB ID: [id number] [employer]- All Rights Reserved Reading location - IP/workstation name: [email or web address]
[2017-06-12] MEDS ORDERED: ZOLPIDEM TARTRATE 5 MG TABLET PO ONE (00:15)
[2017-06-12] MEDS ORDERED: RINGERS SOLUTION,LACTATED 1,000 ML IV PRN (04:49)
[2017-06-12] MEDS ORDERED: CEFAZOLIN 1 GM/D5W RTU 1 GM/50 ML RTUPB IV PRN (05:00)
[2017-06-12] MEDS ORDERED: AZITHROMYCIN 500 MG in DEXTROSE 5%-WATER 250 ML IV PRN (05:00)
[2017-06-12] MEDS ORDERED: RINGERS SOLUTION,LACTATED 1,000 ML IV ONE (05:00)
[2017-06-12] MEDS ORDERED: CEFAZOLIN SODIUM 1 GM in DEXTROSE 5%-WATER 50 ML IV PRN (07:15)
[2017-06-12] MEDS ORDERED: FENTANYL CITRATE INJ/PF 100 MCG/2 ML AMPUL ONE (07:23)
[2017-06-12] MEDS ORDERED: OXYTOCIN 10 UNIT/ML VIAL ONE (07:23)
[2017-06-12] MEDS ORDERED: ACETAMINOPHEN 100 ML IV ONE (07:24)
[2017-06-12] MEDS ORDERED: MIDAZOLAM 2 MG/2 ML INJ ONE (07:24)
[2017-06-12] MEDS ORDERED: EPHEDRINE SULFATE INJ 50 MG/1 ML AMPULE ONE (07:24)
[2017-06-12] MEDS ORDERED: OXYTOCIN/NORMAL SALINE 20 UNIT/1,000 ML RTUINJ ONE (07:24)
[2017-06-12] MEDS ORDERED: TETRACAINE HCL/PF 20MG/2ML AMPULE (SPINAL) ONE (07:24)
[2017-06-12] MEDS ORDERED: CEFAZOLIN INJ 1 GM VIAL ONE (07:41)
[2017-06-12] MEDS ORDERED: MEPERIDINE HCL/PF INJ 25 MG/1 ML DISP.SYRIN IV PRN (08:30)
[2017-06-12] MEDS ORDERED: PROMETHAZINE HCL INJ 25 MG/1 ML VIAL IV PRN ×3 (08:30→09:11)
[2017-06-12] MEDS ORDERED: DIPHENHYDRAMINE HCL 50 MG/ML VIAL IV PRN (08:30)
[2017-06-12] MEDS ORDERED: ONDANSETRON HCL INJ/PF 4 MG/2 ML SDV IV PRN (08:30)
[2017-06-12] MEDS ORDERED: MORPHINE SULFATE 10 MG/ML INJ IV PRN (08:30)
[2017-06-12] MEDS ORDERED: FENTANYL CITRATE INJ/PF 100 MCG/2 ML AMPUL IV PRN ×3 (08:30)
[2017-06-12] MEDS ORDERED: HYDROMORPHONE HCL INJ/PF 2 MG/ML AMPULE IV PRN (09:11)
[2017-06-12] MEDS ORDERED: MEASLES,MUMPS&RUBELLA VACC/PF 0.5 ML VIAL SUBCUT PRN (09:11)
[2017-06-12] MEDS ORDERED: OXYCODONE-ACETAMINOPHEN 5-325 MG TABLET PO PRN (09:11)
[2017-06-12] MEDS ORDERED: DIPH/PERTUSS(ACELL)/TETANUS VAC/PF 0.5 ML SYR (>=10YO) IM PRN (09:11)
[2017-06-12] MEDS ORDERED: ACETAMINOPHEN 325 MG TABLET PO PRN (09:11)
[2017-06-12] MEDS ORDERED: SIMETHICONE 80 MG TAB.CHEW PO PRN (09:11)
[2017-06-12] MEDS ORDERED: ACETAMINOPHEN 100 ML IV PRN (09:11)
[2017-06-12] MEDS ORDERED: OXYTOCIN/NORMAL SALINE 20 UNIT/1,000 ML RTUINJ IV PRN (09:11)
--- NOTE | 2017-06-12 09:11 | Brief Operative Note ---
BRIEF OPERATIVE REPORT DATE OF SURGERY: 06/12/17 TIME OF SURGERY: 09:00 PREOPERATIVE DIAGNOSIS: CHTN, non compliant with medical care. H/o section, 39+3ega, POSTOPERATIVE DIAGNOSIS: PHILIPPE - delivered SURGEON: ALISE POLO FINDINGS: VMI, Apgars 9/9, weight 7#4oz, normal bilateral tubes and ovaries, IVF 1000ml, UOP 200ml, EBl 600ml, QBL pending, Floseal and Surgicel used. COMPLICATIONS: none ESTIMATED BLOOD LOSS: 600ml TISSUE REMOVED OR ALTERED: Placenta and cord not sent to pathology TECHNICAL PROCEDURE: Repeat section
--- NOTE | 2017-06-12 09:15 | PDOC DELIVERY SUMMARY ---
Delivery Summary - Maternal Hx : II Hx Para: I Hx # Term Pregnancies: 1 Hx # Pregnancies: 0 Hx Total # of Abortions (Sponateous & Elective): 0 Number of Living Children: 1 ERI: 06/16/17 Gestational Age: 39.3 Risk Factors: Previous Ruptured Membranes: AROM Time of Rupture: 08:06 Fluids: Clear - Delivery Labor: Not In Labor Presentation: Vertex Heart Rate Monitoring: Done Pre-Operatively Uterine Contraction Monitoring: External Support Person Present: Yes - RACHEAL SHAIKH Location: : Scheduled Placenta: Within Normal Limits Placenta Description: normal Number of Vessels (Cord): 3 Nuchal Cord: No Delivery of Placenta Date: 06/12/17 Delivery of Placenta Time: 08:10 Estimated Blood Loss: 600 - Medications Type of Anesthesia:: Spinal - Infant Assess and Care Baby 1 Male Delivery of Infant Date: 06/12/17 Delivery of Infant Time: 08:07 at 1 minute: 9 at 5 minutes: 9 Preprinted Number On Band: [id number] Skin to Skin: No To Nursery At: 08:15 Mode of Transport: Bassinet Infant Delivery Weight: 3,280 Infant Delivery Length: 20 in - Delivery Personnel Chaser Helper: DISIUSEPPE Nursery RN: DILMA TINAJERO MD: ALISE POLO
[2017-06-12] MEDS ORDERED: PROPOFOL INJ 200 MG/20 ML VIAL IV ONE (09:39)
[2017-06-12] MEDS ORDERED: (PENDING PHARMACY ID) (Prenatal No122/Iron/Folic Acid [Prenatal Multi Tablet] 1 EACH) PO SCH (10:00)
[2017-06-12] MEDS: DOCUSATE SODIUM 100 MG CAPSULE PO SCH ×2 (12:36→18:29)
[2017-06-12] MEDS: PRENATAL VITAMIN W DHA CAPSULE PO SCH ×2 (12:36)
[2017-06-12] MEDS ORDERED: ONDANSETRON HCL INJ/PF 4 MG/2 ML SDV ONE (12:44)
[2017-06-12] MEDS ORDERED: METOCLOPRAMIDE HCL INJ/PF 10 MG/2 ML SDV ONE (12:44)
[2017-06-12] MEDS ORDERED: PHENYLEPHRINE HCL INJ/PF 10 MG/1 ML SDV ONE (12:44)
[2017-06-12] MEDS ORDERED: DEXAMETHASONE SOD PHOSPHATE INJ 4 MG/1 ML VIAL ONE (12:44)
[2017-06-12] MEDS: IBUPROFEN 800 MG TABLET PO SCH (18:29)
[2017-06-12] MEDS: OXYCODONE-ACETAMINOPHEN 5-325 MG TABLET PO PRN (18:51)
[2017-06-13] MEDS: OXYCODONE-ACETAMINOPHEN 5-325 MG TABLET PO PRN ×5 (00:13→23:44)
[2017-06-13] MEDS: IBUPROFEN 800 MG TABLET PO SCH ×5 (00:14→23:04)
[2017-06-13] MEDS: ZOLPIDEM TARTRATE 5 MG TABLET PO SCH ×2 (04:46→23:03)
[2017-06-13 07:07] LABS: HEMATOCRIT 20.2 % (36.0-47.0); MEAN CORPUSCULAR HEMOGLOBIN 26.2 pg (27.0-33.4); MEAN CORPUSCULAR HGB CONC 33.2 g/dL (32.0-36.0); MEAN CORPUSCULAR VOLUME 79 fl (80-97); PLATELET COUNT 202 10^3/uL (150-450); RED BLOOD COUNT 2.56 10^6/uL (3.72-5.28); RED CELL DISTRIBUTION WIDTH 15.2 % (11.5-14.0); WHITE BLOOD COUNT 10.7 10^3/uL (4.0-10.5)
[2017-06-13 07:18] LABS: HEMOGLOBIN 6.7 g/dL (12.0-15.5)
--- NOTE | 2017-06-13 09:26 | PDOC PROGRESS REPORT ---
Subjective-OB Progress Note for:: 06/13/17 Physical Exam (OB) Vital Signs: Temp Pulse Resp BP Pulse Ox 97.7 F 88 18 142/87 H 100 06/13/17 07:45 06/13/17 08:41 06/13/17 08:41 06/13/17 08:41 06/13/17 08:41 Intake & Output 06/12/17 06/13/17 06/14/17 06:59 06:59 06:59 Intake Total 500 2850 Output Total 1850 Balance 500 1000 Weight 73.1 kg - PIH/Pre-Eclampsia DTR's: 1 + Clonus: Negative Headache: Absent Epigastric Pain: No Visual Changes: No - Incision: Well Approximated Closure Type: Surgical Glue - Lochia Lochia Amount: Small 10-25 ml Lochia Color: Rubra/Red - Abdomen Description: Tender, Soft Hernia Present: No Bowel Sounds: Normoactive Flatus Presence: Present Stool: No Fundal Description: Firm, Midline Fundal Height: u/u - u/2 Objective-Diagnostic Laboratory: 06/13/17 06:55 06/11/17 10:05 06/13/17 06:55 WBC 10.7 H RBC 2.56 L Hgb 6.7 L D Hct 20.2 L MCV 79 L MCH 26.2 L MCHC 33.2 RDW 15.2 H Plt Count 202
[2017-06-13] MEDS: DOCUSATE SODIUM 100 MG CAPSULE PO SCH ×2 (09:47→17:33)
[2017-06-13] MEDS: PRENATAL VITAMIN W DHA CAPSULE PO SCH ×2 (09:47→09:50)
[2017-06-13 12:14] LABS: ABSOLUTE EOSINOPHILS # (AUTO) 0.1 10^3/uL (0.0-0.6); ABSOLUTE MONOCYTES (AUTO) 0.7 10^3/uL (0.1-1.4); BASOPHILS % (AUTO) 0.2 % (0-2); EOSINOPHILS % (AUTO) 1.2 % (0-6); LYMPHOCYTES % (AUTO) 19.9 % (13-45); MEAN CORPUSCULAR HEMOGLOBIN 25.7 pg (27.0-33.4); MEAN CORPUSCULAR HGB CONC 32.3 g/dL (32.0-36.0); MEAN CORPUSCULAR VOLUME 80 fl (80-97); MONOCYTES % (AUTO) 7.1 % (3-13); PLATELET COUNT 212 10^3/uL (150-450); RED BLOOD COUNT 2.51 10^6/uL (3.72-5.28); RED CELL DISTRIBUTION WIDTH 15.3 % (11.5-14.0); SEGMENTED NEUTROPHILS % (AUTO) 71.6 % (42-78); TOTAL CELLS COUNTED % (AUTO) 100 %; WHITE BLOOD COUNT 9.8 10^3/uL (4.0-10.5)
[2017-06-13 12:18] LABS: HEMOGLOBIN 6.4 g/dL (12.0-15.5)
[2017-06-13] MEDS ORDERED: DIPHENHYDRAMINE HCL 50 MG CAPSULE PO PRN (13:06)
[2017-06-13] MEDS ORDERED: ACETAMINOPHEN 325 MG TABLET PO PRN (13:07)
[2017-06-13 19:47] LABS: HEMATOCRIT 23.5 % (36.0-47.0); MEAN CORPUSCULAR HEMOGLOBIN 27.3 pg (27.0-33.4); MEAN CORPUSCULAR HGB CONC 33.8 g/dL (32.0-36.0); MEAN CORPUSCULAR VOLUME 81 fl (80-97); PLATELET COUNT 223 10^3/uL (150-450); RED BLOOD COUNT 2.91 10^6/uL (3.72-5.28); RED CELL DISTRIBUTION WIDTH 15.6 % (11.5-14.0); WHITE BLOOD COUNT 10.3 10^3/uL (4.0-10.5)
[2017-06-13 20:24] LABS: HEMOGLOBIN 7.9 g/dL (12.0-15.5)
[2017-06-14] MEDS: IBUPROFEN 800 MG TABLET PO SCH ×2 (06:35→12:16)
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
[2017-06-14] MEDS: PRENATAL VITAMIN W DHA CAPSULE PO SCH ×2 (10:08→10:15)
[2017-06-14] MEDS: DOCUSATE SODIUM 100 MG CAPSULE PO SCH (10:08)
[2017-06-14] MEDS: OXYCODONE-ACETAMINOPHEN 5-325 MG TABLET PO PRN (10:18)
[2017-06-14 14:58] VITALS: BP 137/80
== END 2017-06-14 14:50 | disposition home or self-care (01) | DRG 765 ==
LOC: LC 09:22 → LR 12:49 → 2S 14:55
PROVIDERS: ADMIT Student in an Organized Health Care Education/Training Program; ATTEND Student in an Organized Health Care Education/Training Program
PROC: 10D00Z1 Extraction of Products of Conception, Low, Open Approach (ICD-10-PCS; principal; 2017-06-11)
PROC: 4A1HXCZ Monitoring of Products of Conception, Cardiac Rate, External Approach (ICD-10-PCS; 2017-06-11)
PROC: 3E0234Z Introduction of Serum, Toxoid and Vaccine into Muscle, Percutaneous Approach (ICD-10-PCS; 2017-06-12)
PROC: 3E0F73Z Introduction of Anti-inflammatory into Respiratory Tract, Via Natural or Artificial Opening (ICD-10-PCS; 2017-06-14)
DX: O34.211 Maternal care for low transverse scar from previous cesarean delivery (principal); O10.92 Unspecified pre-existing hypertension complicating childbirth; O99.52 Diseases of the respiratory system complicating childbirth; O26.893 Other specified pregnancy related conditions, third trimester; J45.909 Unspecified asthma, uncomplicated; Z62.810 Personal history of physical and sexual abuse in childhood; Z87.891 Personal history of nicotine dependence; Z3A.39 39 weeks gestation of pregnancy; Z91.19 Patient's noncompliance with other medical treatment and regimen; Z37.0 Single live birth; Z23 Encounter for immunization
CPT/HCPCS: 1961; 36415; 36430; 59025; 76815; 80053; 80307; 81001; 82570; 83615; 84156; 84550; 85025; 85027; 85461; 86592; 86850; 86900; 86901; 86920; 90707; 94799; C1765; J0131; J0456; J0690; J1100; J1170; J2250; J2370; J2405; J2590; J2704; J2765; J2790; J3010; J3490; J7060; J7120; P9016

== ENCOUNTER 2017-06-21 11:54 | Inpatient (IN) | payer MEDICAID ==
[2017-06-21] MEDS ORDERED: HYDRALAZINE HCL INJ/PF 20 MG/1 ML SDV IV ONE (12:14)
[2017-06-21] MEDS ORDERED: MAGNESIUM SULFATE 20 GM/500 ML RTUINJ IV ONE ×2 (12:20→22:21)
[2017-06-21] MEDS ORDERED: MAGNESIUM SULFATE 4 GM/100 ML RTUPB IV ONE (12:20)
[2017-06-21] MEDS ORDERED: HYDRALAZINE HCL INJ/PF 20 MG/1 ML SDV ONE (12:20)
[2017-06-21 13:23] LABS: ABSOLUTE EOSINOPHILS # (AUTO) 0.2 10^3/uL (0.0-0.6); ABSOLUTE LYMPHOCYTES (AUTO) 2.5 10^3/uL (0.5-4.7); ABSOLUTE MONOCYTES (AUTO) 0.6 10^3/uL (0.1-1.4); ABSOLUTE NEUT (AUTO) 3.7 10^3/uL (1.7-8.2); BASOPHILS % (AUTO) 0.2 % (0-2); EOSINOPHILS % (AUTO) 3.2 % (0-6); HEMATOCRIT 29.7 % (36.0-47.0); HEMOGLOBIN 9.5 g/dL (12.0-15.5); LYMPHOCYTES % (AUTO) 34.9 % (13-45); MEAN CORPUSCULAR HEMOGLOBIN 25.4 pg (27.0-33.4); MEAN CORPUSCULAR HGB CONC 31.9 g/dL (32.0-36.0); MEAN CORPUSCULAR VOLUME 80 fl (80-97); MONOCYTES % (AUTO) 8.8 % (3-13); PLATELET COUNT 413 10^3/uL (150-450); RED BLOOD COUNT 3.72 10^6/uL (3.72-5.28); RED CELL DISTRIBUTION WIDTH 16.1 % (11.5-14.0); SEGMENTED NEUTROPHILS % (AUTO) 52.9 % (42-78); TOTAL CELLS COUNTED % (AUTO) 100 %; WHITE BLOOD COUNT 7.1 10^3/uL (4.0-10.5)
[2017-06-21] MEDS: RINGERS SOLUTION,LACTATED 1,000 ML IV PRN ×2 (13:23→16:21)
[2017-06-21 13:45] LABS: ALANINE AMINOTRANSFERASE 32 U/L (9-52); ALBUMIN 3.5 g/dL (3.5-5.0); ALKALINE PHOSPHATASE 256 U/L (38-126); ANION GAP 15 (5-19); ASPARTATE AMINO TRANSFERASE 37 U/L (14-36); BILIRUBIN,DIRECT 0.3 mg/dL (0.0-0.4); BILIRUBIN,TOTAL 0.8 mg/dL (0.2-1.3); BLOOD UREA NITROGEN 10 mg/dL (7-20); CALCIUM 9.3 mg/dL (8.4-10.2); CARBON DIOXIDE 21 mmol/L (22-30); CHLORIDE 108 mmol/L (98-107); GLUCOSE 64 mg/dL (75-110); LDH 698 U/L (313-618); POTASSIUM 4.4 mmol/L (3.6-5.0); SODIUM 144.1 mmol/L (137-145); URIC ACID 5.2 mg/dL (2.5-6.2)
[2017-06-21] MEDS ORDERED: IBUPROFEN 800 MG TABLET ONE (14:02)
[2017-06-21 14:22] LABS: UR PRO/CREAT RATIO RESULT 0.1 mg/mg (0.0-0.2); URINE CREATININE 207.1 mg/dL (16-327); URINE PROTEIN 24.1 mg/dL (<12)
[2017-06-22] MEDS ORDERED: IBUPROFEN 800 MG TABLET ONE ×2 (01:11→08:08)
[2017-06-22] MEDS: IBUPROFEN 800 MG TABLET PO PRN ×3 (01:11→17:45)
[2017-06-22] MEDS: RINGERS SOLUTION,LACTATED 1,000 ML IV PRN (02:12)
[2017-06-22] MEDS ORDERED: LISINOPRIL 10 MG TABLET ONE (08:27)
[2017-06-22] MEDS ORDERED: MAGNESIUM SULFATE 20 GM/500 ML RTUINJ IV ONE (09:28)
[2017-06-22] MEDS: LISINOPRIL 5 MG TABLET PO SCH (17:15)
[2017-06-23] MEDS ORDERED: HYDRALAZINE HCL INJ/PF 20 MG/1 ML SDV IV ONE (04:30)
--- NOTE | 2017-06-23 09:09 | PDOC PROGRESS REPORT ---
Subjective-OB Progress Note for:: 06/23/17 Physical Exam (OB) Vital Signs: Temp Pulse Resp BP Pulse Ox 99.2 F 77 18 140/83 H 100 06/23/17 07:09 06/23/17 07:38 06/23/17 07:09 06/23/17 07:38 06/23/17 07:09 Intake & Output 06/22/17 06/23/17 06/24/17 06:59 06:59 06:59 Intake Total 700 Balance 700 Weight 65.6 kg - General General Appearance: Alert - PIH/Pre-Eclampsia DTR's: 1 + Clonus: Negative Headache: Absent Epigastric Pain: No Visual Changes: No - Dressing Removed: - Open to air Incision: Well Approximated - Lochia Lochia Amount: Small 10-25 ml - Abdomen Description: Soft, Round Hernia Present: No Bowel Sounds: Normoactive Flatus Presence: Present Stool: Yes - Respiratory Breath sounds: Clear - Extremities Calf: Nontender Objective-Diagnostic Laboratory: 06/21/17 12:53 06/21/17 12:53 Assessment and Plan(PN) - Assessment and Plan (1) Pre-eclampsia affecting with pre-existing hypertension, delivered , current hospitalization Is this a current diagnosis for this admission?: Yes (2) Chronic hypertension affecting Is this a current diagnosis for this admission?: Yes - Time Spent with Patient Time with patient: 15-25 minutes Medications reviewed and adjusted accordingly: Yes - Disposition Anticipated Discharge: Home
--- NOTE | 2017-06-23 09:12 | PDOC DISCHARGE SUMMARY ---
Final Diagnosis Discharge Date: 06/23/17 - Final Diagnosis (1) Pre-eclampsia affecting with pre-existing hypertension, delivered , current hospitalization Is this a current diagnosis for this admission?: Yes (2) Chronic hypertension affecting Is this a current diagnosis for this admission?: Yes Discharge Data - Discharge Medication Prescriptions: Lisinopril [Prinivil 5 mg Tablet] 5 mg PO DAILY #30 tablet Home Medications: Ibuprofen [Motrin 800 mg Tablet] 800 mg PO Q6 #60 tablet 06/14/17 Oxycodone HCl/Acetaminophen [Percocet 5-325 mg Tablet] 1 tab PO Q4HP PRN #30 tablet 06/14/17 Vit/Dha [ Multi + Dha Capsule] 1 cap PO DAILY capsule Lisinopril [Prinivil 5 mg Tablet] 5 mg PO DAILY #30 tablet 06/23/17 Reason(s) for Admission: Other - chronic HTN with pre-eclampsia Procedures: Management of Medical Complications Intrapartum Procedure(s): : Low Cervical, Transverse - Diagnosis Test Laboratory: Temp Pulse Resp BP Pulse Ox 99.2 F 77 18 140/83 H 100 06/23/17 07:09 06/23/17 07:38 06/23/17 07:09 06/23/17 07:38 06/23/17 07:09 06/21/17 12:53 RBC 3.72 Hgb 9.5 L Hct 29.7 L - Discharge information/Instructions Discharge Activity: Activity As Tolerated, No Lifting/Push/Pulling, Pelvic Rest , Slowly Increase Activity, No tub bath Discharge Diet: As Tolerated Disposition: HOME, SELF-CARE Follow up with: [facility] in: 1
[2017-06-23] MEDS: LISINOPRIL 5 MG TABLET PO SCH (09:44)
[2017-06-23] MEDS: IBUPROFEN 800 MG TABLET PO PRN (09:44)
[2017-06-23 10:56] VITALS: BP 135/66
--- NOTE | 2017-07-26 13:00 | Admission Physical ---
Datetime Report Generated by CPN: 07/26/2017 13:00 CURRENT ADMISSION Chief Complaint: Other Indication for Induction: Not Applicable Admit Impression : Medical Complication Admit Plan: Observation/Evaluation PHYSICAL EXAM General: Normal HEENT: Normal Neurologic: Normal Thyroid: Normal Heart: Normal Lungs: Normal Breast: Deferred Back: Normal Abdomen: Normal Genitourinary Exam: Normal Extremities: Normal DTRs: Normal Pelvic Type: Adequate FETUS A EGA: 40.5 EGA: 39.2 Admit Comment: admitted for post HTN and placed on Mgsulfate INFORMED CONSENT Signature: with User ID: [email or web address]
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
== END 2017-06-23 11:41 | disposition home or self-care (01) | DRG 776 ==
LOC: LR 11:54 → 2N 06-22 15:30
PROVIDERS: ADMIT Obstetrics & Gynecology Gynecology; ATTEND Obstetrics & Gynecology Gynecology
DX: O11.5 Pre-existing hypertension with pre-eclampsia, complicating the puerperium (principal)
CPT/HCPCS: 36415; 80053; 82570; 83615; 84156; 84550; 85025; J0360; J3475

== ENCOUNTER 2017-09-14 16:46 | Emergency (ER) | payer SELFPAY ==
[2017-09-14] MEDS ORDERED: CLINDAMYCIN HCL 150 MG CAPSULE PO ONE (18:49)
[2017-09-14] MEDS ORDERED: HYDROCODONE/ACETAMINOPHEN 5-325 MG TABLET PO ONE (18:49)
[2017-09-14] MEDS ORDERED: LIDOCAINE 2% VISCOUS SOLN 20 ML UDCUP PO ONE (18:49)
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
[2017-09-14] MEDS ORDERED: HYDROCODONE/ACETAMINOPHEN 5-325 MG TABLET ONE (19:24)
[2017-09-14 19:55] VITALS: BP 158/111
== END 2017-09-14 20:10 | disposition home or self-care (01) ==
LOC: ER 16:46
PROC: 0C95XZZ Drainage of Upper Gingiva, External Approach (ICD-10-PCS; principal; 2017-09-14)
DX: K04.7 Periapical abscess without sinus (principal); I10 Essential (primary) hypertension
CPT/HCPCS: 99282; 41800; J3490

== ENCOUNTER 2017-09-28 11:46 | Emergency (ER) | payer SELFPAY ==
[2017-09-28 11:54] VITALS: BP 157/95
--- NOTE | 2017-09-28 11:54 | ER Document Report ---
HPI - HPI Patient complains to provider of: Dental pain Onset: Yesterday Onset/Duration: Gradual Pain Level: 4 Context: 27-year-old female thinks she has another dental abscess top right. She was seen September 14 and she was very swollen the incised the abscess and it drained. It started back again yesterday. She has not taken her lisinopril 5 mg for a while she did not see her primary care doctor to get that filled. She has had hypertension since her first child. No fever or chills. No facial swelling. Associated Symptoms: None Exacerbated by: Denies Relieved by: Denies Similar symptoms previously: Yes Recently seen / treated by doctor: No - ROS ROS below otherwise negative: Yes Systems Reviewed and Negative: Yes All other systems reviewed and negative - REPRODUCTIVE Reproductive: REPORTS: : Past Medical History - General Information source: Patient - Social History Smoking Status: Never Smoker Frequency of alcohol use: None Drug Abuse: None Lives with: Family Family History: Reviewed & Not Pertinent - Past Medical History Cardiac Medical History: Reports: Hx Hypertension Pulmonary Medical History: Reports: Hx Asthma Renal/ Medical History: Denies: Hx Peritoneal Dialysis Musculoskeletal Medical History: Reports Hx Musculoskeletal Trauma Traumatic Medical History: Reports: Hx Fractures - Foot Past Surgical History: Reports: Hx Section - Immunizations Hx Diphtheria, Pertussis, Tetanus Vaccination: Yes Vertical Provider Document - CONSTITUTIONAL Agree With Documented VS: Yes Exam Limitations: No Limitations - INFECTION CONTROL TRAVEL OUTSIDE OF THE [place] IN LAST 30 DAYS: No - HEENT Notes: dental abscess top right adjacent to 2nd bicuspid - NECK Neck: Supple. negative: Lymphadenopathy-Left, Lymphadenopathy-Right Discharge - Discharge Clinical Impression: Dental abscess, Hypertension Condition: Good Disposition: HOME, SELF-CARE Instructions: Acetaminophen, Angiotensin Converting Enzyme Inhibitor Medication ([facility]), Dentist, Dental Infection or Abscess ([facility]), Ibuprofen (General ) ([facility]), Penicillin V K ([facility]), [facility] Additional Instructions: See the dentist Warm compress Return to the emergency room if worse We will start to back on his lisinopril 5 mg for the hypertension [facility] and dental care Prescriptions: Ibuprofen [Motrin 600 mg Tablet] 600 mg PO Q8HP PRN #30 tablet PRN Reason: Lisinopril 5 mg PO DAILY #30 tablet Penicillin V Potassium [Penicillin Vk 500 mg Tablet] 500 mg PO QID #40 tablet
== END 2017-09-28 12:40 | disposition home or self-care (01) ==
LOC: ER 11:46
DX: O99.619 Diseases of the digestive system complicating pregnancy, unspecified trimester (principal); K04.7 Periapical abscess without sinus; K08.89 Other specified disorders of teeth and supporting structures; O10.919 Unspecified pre-existing hypertension complicating pregnancy, unspecified trimester; T46.4X6A Underdosing of angiotensin-converting-enzyme inhibitors, initial encounter; Z91.128 Patient's intentional underdosing of medication regimen for other reason; Z91.14 Patient's other noncompliance with medication regimen; O99.519 Diseases of the respiratory system complicating pregnancy, unspecified trimester; J45.909 Unspecified asthma, uncomplicated; Z3A.00 Weeks of gestation of pregnancy not specified; O26.899 Other specified pregnancy related conditions, unspecified trimester
CPT/HCPCS: 99282

== ENCOUNTER 2017-10-14 11:29 | Emergency (ER) | payer SELFPAY ==
[2017-10-14 12:03] VITALS: BP 159/106
--- NOTE | 2017-10-14 12:35 | ER Document Report ---
HPI - HPI Patient complains to provider of: Dental infection Pain Level: 4 Context: Patient is a 27-year-old female complaining of a possible dental infection to her right upper molar tooth #3. Patient has been seen in the emergency department several times for the same tooth infection. Patient has yet to see the dentist. Patient reports that her Medicaid is active at this time. Patient is afebrile. Patient also has a history of hypertension and takes lisinopril. Her blood pressure is noted to be elevated today but she reports she has not taken her blood pressure medicine today. Associated Symptoms: None Exacerbated by: Food - ROS Systems Reviewed and Negative: Yes All other systems reviewed and negative - CONSTITUTIONAL Constitutional: DENIES: Fever, Chills - EENT EENT: DENIES: Sore Throat, Ear Pain, Eye problems - NEURO Neurology: DENIES: Headache, Weakness, Vision blurred, Dizzinesss / Vertigo - CARDIOVASCULAR Cardiovascular: DENIES: Chest pain - RESPIRATORY Respiratory: DENIES: Trouble Breathing, Coughing - GASTROINTESTINAL Gastrointestinal: DENIES: Abdominal Pain, Black / Bloody Stools - URINARY Urinary: DENIES: Dysuria, Urgency, Frequency - REPRODUCTIVE Reproductive: REPORTS: : - MUSCULOSKELETAL Musculoskeletal: DENIES: Extremity pain Past Medical History - General Information source: Patient - Social History Smoking Status: Never Smoker Chew tobacco use (# tins/day): No Frequency of alcohol use: None Drug Abuse: Bath salts Lives with: Family Family History: Reviewed & Not Pertinent Patient has suicidal ideation: No Patient has homicidal ideation: No - Past Medical History Cardiac Medical History: Reports: Hx Hypertension Pulmonary Medical History: Reports: Hx Asthma Renal/ Medical History: Denies: Hx Peritoneal Dialysis Musculoskeletal Medical History: Reports Hx Musculoskeletal Trauma Traumatic Medical History: Reports: Hx Fractures - Foot Past Surgical History: Reports: Hx Section - Immunizations Hx Diphtheria, Pertussis, Tetanus Vaccination: Yes Vertical Provider Document - CONSTITUTIONAL Agree With Documented VS: Yes Exam Limitations: No Limitations - INFECTION CONTROL TRAVEL OUTSIDE OF THE [place] IN LAST 30 DAYS: No - HEENT HEENT: AtraumaticCHRISTIRKATHRYN Mouth Diagram: 1 - Abscess - NECK Neck: Normal Inspection, Supple - RESPIRATORY Respiratory: Breath Sounds Normal, No Respiratory Distress - CARDIOVASCULAR Cardiovascular: Regular Rate, Regular Rhythm - MUSCULOSKELETAL/EXTREMETIES Musculoskeletal/Extremeties: MAEW, FROM, Non-Tender Course - Re-evaluation Re-evalutation: 10/14/17 12:32 History and physical are consistent with an uncomplicated dental infection. There is no trismus, Dion angina, peritonsillar abscess, airway compromise. Course of antibiotics prescribed for patient. Patient instructed to follow-up with dental [facility]AN[facility] for further evaluation and treatment. Blood pressure is noted to be elevated at this time. Patient has her prescription of lisinopril which she reports she is taking as prescribed but she has not taken her dose for today. Patient denies any headache, chest pain, dizziness or other signs of hypertensive crisis. - Vital Signs Vital signs: Temp Pulse Resp BP Pulse Ox 99.0 F 93 16 159/106 H 100 10/14/17 11:59 10/14/17 11:59 10/14/17 11:59 10/14/17 11:59 10/14/17 11:59 Discharge - Discharge Clinical Impression: Dental infection Condition: Stable Disposition: HOME, SELF-CARE Instructions: Penicillin V K ([facility]), Toothache ([facility]) Additional Instructions: Take antibiotic as prescribed Follow-up with dental [facility]AN[facility] for further evaluation and treatment Motrin for pain Prescriptions: Ibuprofen [Motrin 800 Mg Tablet] 800 mg PO Q6H #20 tablet Penicillin V Potassium [Penicillin Vk 500 mg Tablet] 500 mg PO BID #20 tablet Forms: Return to Work
== END 2017-10-14 13:03 | disposition home or self-care (01) ==
LOC: ER 11:29
DX: O99.619 Diseases of the digestive system complicating pregnancy, unspecified trimester (principal); K04.7 Periapical abscess without sinus; O16.9 Unspecified maternal hypertension, unspecified trimester; Z79.899 Other long term (current) drug therapy; O99.519 Diseases of the respiratory system complicating pregnancy, unspecified trimester; J45.909 Unspecified asthma, uncomplicated; Z3A.00 Weeks of gestation of pregnancy not specified
CPT/HCPCS: 99282

== ENCOUNTER 2017-10-31 13:02 | Emergency (ER) | payer SELFPAY ==
--- NOTE | 2017-10-31 13:44 | ER Document Report ---
ED Respiratory Problem - General Chief Complaint: Cough Stated Complaint: COUGH Time Seen by Provider: 10/31/17 13:37 Mode of Arrival: Ambulatory Information source: Patient Notes: 27-year-old female presents to ED for complaint of cough cold congestion low- grade fever and chest pain with cough. He states he been having these symptoms for about a week. Patient is alert and oriented respirations regular and unlabored speaking with full sentences walking with a even steady gait. TRAVEL OUTSIDE OF THE [place] IN LAST 30 DAYS: No - HPI Patient complains to provider of: Chest pain - Cough, Cough Onset: Last week Duration: Continuous Initiating Event: URI Quality of pain: Achy Severity: Moderate Pain Level: 3 Context: Smoker Cough: Nonproductive Sputum amount: None Associated symptoms: Chest pain/discomfort, Congestion, Cough, Fever - Date low- grade fever 2 days ago none today, PND, Runny nose, Sinus pain/pressure Similar symptoms previously: Yes Recently seen / treated by doctor: Yes - Related Data Allergies/Adverse Reactions: No Known Allergies Allergy (Verified 10/31/17 13:03) Past Medical History - General Information source: Patient - Social History Smoking Status: Current Every Day Smoker Cigarette use (# per day): Yes Chew tobacco use (# tins/day): No Smoking Education Provided: Yes - Minutes Frequency of alcohol use: Occasional Drug Abuse: Marijuana Lives with: Family Family History: Reviewed & Not Pertinent Patient has suicidal ideation: No Patient has homicidal ideation: No - Past Medical History Cardiac Medical History: Reports: Hx Hypertension Pulmonary Medical History: Reports: Hx Asthma EENT Medical History: Reports: None Neurological Medical History: Reports: None Endocrine Medical History: Reports: None Malignancy Medical History: Reports: None GI Medical History: Reports: None Musculoskeletal Medical History: Reports Hx Musculoskeletal Trauma Skin Medical History: Reports None Psychiatric Medical History: Reports: None Traumatic Medical History: Reports: Hx Fractures - Foot Infectious Medical History: Reports: None Past Surgical History: Reports: Hx Section - Immunizations Hx Diphtheria, Pertussis, Tetanus Vaccination: Yes Review of Systems - Review of Systems Constitutional: Chills, Fever, Recent illness EENT: Nose discharge, Sinus discharge Cardiovascular: No symptoms reported Respiratory: Cough Gastrointestinal: No symptoms reported Genitourinary: No symptoms reported Female Genitourinary: No symptoms reported Musculoskeletal: No symptoms reported Skin: No symptoms reported Hematologic/Lymphatic: No symptoms reported Neurological/Psychological: No symptoms reported -: Yes All other systems reviewed and negative Physical Exam - Vital signs Vitals: Temp Pulse Resp BP Pulse Ox 99.0 F 85 16 147/86 H 99 10/31/17 13:28 10/31/17 13:28 10/31/17 13:28 10/31/17 13:28 10/31/17 13:28 Interpretation: Normal - General General appearance: Appears well, Alert - HEENT Head: Normocephalic, Atraumatic Eyes: Normal Pupils: PERRL Ears: Normal External canal: Normal Tympanic membrane: Normal Sinus: Normal Nasal: Purulent discharge, Swelling Mouth/Lips: Normal Mucous membranes: Normal Pharynx: Post nasal drainage. No: Erythema, Exudate, Tonsillar hypertrophy Neck: Normal - Respiratory Respiratory status: No respiratory distress Chest status: Pain with cough Breath sounds: Nonproductive cough. No: Decreased air movement, Productive cough, Rales, Rhonchi, Stridor, Wheezing Chest palpation: Normal - Cardiovascular Rhythm: Regular Heart sounds: Normal auscultation Murmur: No - Abdominal Inspection: Normal Distension: No distension Bowel sounds: Normal Tenderness: Nontender Organomegaly: No organomegaly - Back Back: Normal, Nontender - Extremities General upper extremity: Normal inspection, Nontender, Normal color, Normal ROM , Normal temperature General lower extremity: Normal inspection, Nontender, Normal color, Normal ROM , Normal temperature, Normal weight bearing. No: Mabel's sign - Neurological Neuro grossly intact: Yes Cognition: Normal Orientation: AAOx4 [place] Coma Scale Eye Opening: Spontaneous [place] Coma Scale Verbal: Oriented [place] Coma Scale Motor: Obeys Commands [place] Coma Scale Total: 15 Speech: Normal Motor strength normal: LUE, RUE, LLE, RLE Sensory: Normal - Psychological Associated symptoms: Normal affect, Normal mood - Skin Skin Temperature: Warm Skin Moisture: Dry Skin Color: Normal Course - Re-evaluation Re-evalutation: 10/31/17 20:52 Assessment consistent with an upper respiratory infection but patient insisted that she get a chest x-ray. The chest x-ray was negative. Patient was treated with Claritin Sudafed and Mucinex and ibuprofen for cough cold congestion and upper respiratory symptoms. Patient was discharged home with instructions for [id number] medications. - Vital Signs Vital signs: Temp Pulse Resp BP Pulse Ox 98.5 F 69 16 135/100 H 97 10/31/17 15:12 10/31/17 15:12 10/31/17 13:28 10/31/17 15:12 10/31/17 15:12 - Diagnostic Test Radiology reviewed: Image reviewed, Reports reviewed Discharge - Discharge Clinical Impression: URI (upper respiratory infection) Qualifiers: URI type: unspecified URI Qualified Code(s): J06.9 - Acute upper respiratory infection, unspecified Condition: Stable Disposition: HOME, SELF-CARE Instructions: Family Physicians / Practices Additional Instructions: UPPER RESPIRATORY ILLNESS: You have a viral infection of the respiratory passages -- a "cold." This common infection causes nasal congestion, drainage, and often sore throat and cough. It is highly contagious. The disease usually lasts about 10 to 14 days. There is no "cure" for the viral infection -- it must run its course. If there is a complication, such as bacterial infection in the nose, sinuses, middle ear, or bronchial tubes, antibiotics may be required. The antibiotics won't affect the virus. Drink plenty of fluids. A humidifier may help. An expectorant medication or decongestant may make you more comfortable. Use acetaminophen or ibuprofen for fever or aches. See the doctor if fever persists over two days, if there is any significant worsening of your symptoms, or if you simply fail to improve as expected. COUGH-SUPPRESSANT & EXPECTORANT MEDICATION: You are to use a cough medication as needed for relief of symptoms. This medicine is a combination of an expectorant (to make the mucous thinner and more easily "coughed up") and a cough suppressant (to reduce the frequency of coughing). The cough-suppressant medicine is related to narcotics. You may experience mild nausea and sleepiness. Some patients who are very sensitive to narcotics may have stomach pain from this medicine. Taking the medicine with food reduces these side effects. Do not drive or work with machinery until you know how this medicine affects you. The expectorant should have no side effects. Iodine-containing expectorants (such as organidin) should not be taken by persons with active thyroid disease unless approved by your doctor. Call the doctor if you develop shortness of breath, hives, rash, itching, lightheadedness, or severe nausea and vomiting. USE OF ACETAMINOPHEN (Tylenol): Acetaminophen may be taken for pain relief or fever control. It's much safer than aspirin, offering a wider range of "safe" dosages. It is safe during . Some brand names are Tylenol, Panadol, Datril, Anacin 3, Tempra, and Liquiprin. Acetaminophen can be repeated every four hours. The following are maximum recommended dosages: >89 pounds or adults 650 mg to 900 mg Acetaminophen can be repeated every four hours. Maximum dose not to exceed 4000 mg a day. SMOKING: If you smoke, you should stop smoking. The tar and chemicals in cigarette smoke are harmful. Smoking has been shown to cause: emphysema chronic bronchitis lung cancer mouth and throat cancer stomach and pancreas cancer premature aging defects In addition, smoking increases ear and lung infections in children of smokers. FOLLOW-UP CARE: If you have been referred to a physician for follow-up care, call the physician s office for an appointment as you were instructed or within the next two days. If you experience worsening or a significant change in your symptoms, notify the physician immediately or return to the Emergency Department at any time for re-evaluation. Forms: Smoking Cessation Education, Return to Work Referrals: KATHARINA POSADA MD [Primary Care Provider] - Follow up as needed
[2017-10-31] MEDS ORDERED: GUAIFENESIN 600 MG TABLET.SA PO ONE (13:45)
[2017-10-31] MEDS ORDERED: IBUPROFEN 600 MG TABLET PO ONE (13:45)
[2017-10-31] MEDS ORDERED: LORATADINE 10 MG TABLET PO ONE (13:45)
[2017-10-31] MEDS ORDERED: PSEUDOEPHEDRINE HCL 30 MG TABLET PO ONE (13:45)
--- NOTE | 2017-10-31 14:32 | RADIOLOGY REPORT (SQ) ---
EXAM DESCRIPTION: CHEST 2 VIEWS COMPLETED DATE/TIME: 10/31/2017 2:24 pm REASON FOR STUDY: cough cold COMPARISON: 04/08/2016 EXAM PARAMETERS: NUMBER OF VIEWS: two views TECHNIQUE: Digital Frontal and Lateral radiographic views of the chest acquired. RADIATION DOSE: NA LIMITATIONS: none FINDINGS: LUNGS AND PLEURA: No opacities, masses or pneumothorax. No pleural effusion. MEDIASTINUM AND HILAR STRUCTURES: No masses or contour abnormalities. HEART AND VASCULAR STRUCTURES: Heart normal size. No evidence for failure. BONES: No acute findings. HARDWARE: None in the chest. OTHER: No other significant finding. IMPRESSION: NO ACUTE RADIOGRAPHIC FINDING IN THE CHEST. TECHNICAL DOCUMENTATION: JOB ID: [id number] [employer]- All Rights Reserved Reading location - IP/workstation name: [email or web address]
[2017-10-31 15:13] VITALS: BP 135/100
== END 2017-10-31 15:24 | disposition home or self-care (01) ==
LOC: ER 13:02
DX: J06.9 Acute upper respiratory infection, unspecified (principal); F17.200 Nicotine dependence, unspecified, uncomplicated
CPT/HCPCS: 71046; 99283

== ENCOUNTER → 2018-11-12 | Outpatient (CLI) | payer MEDICAID ==
--- NOTE | 2018-11-12 16:12 | RADIOLOGY REPORT (SQ) ---
EXAM DESCRIPTION: HUMERUS LEFT COMPLETED DATE/TIME: 11/12/2018 2:26 pm REASON FOR STUDY: (Z30.46)ENCTR SRVLNC IMPLANTABLE SUBDERMAL CONTRACEPTIVE Z30.46 ENCTR SRVLNC IMPL ANTABLE SUBDERMAL CONTRACEPTIVE COMPARISON: None. NUMBER OF VIEWS: Two views. TECHNIQUE: Two radiographic images were acquired of the left humerus to include elbow and shoulder i n at least one projection. LIMITATIONS: None. FINDINGS: MINERALIZATION: Normal. BONES: No acute fracture or dislocation. No worrisome bone lesions. SOFT TISSUES: Linear area implantable subdermal contraceptive is seen in the soft tissues. OTHER: No other significant finding. IMPRESSION: Radiopaque foreign body. No osseous finding. TECHNICAL DOCUMENTATION: JOB ID: [id number] [employer]- All Rights Reserved Reading location - IP/workstation name: [email or web address]
== END ==
LOC: RAD 14:03
PROVIDERS: ATTEND Midwife
DX: Z30.46 Encounter for surveillance of implantable subdermal contraceptive (principal)

== ENCOUNTER 2018-12-11 14:46 | Emergency (ER) | payer MEDICAID ==
--- NOTE | 2018-12-11 15:55 | ER Document Report ---
ED Medical Screen (RME) - General Chief Complaint: High Blood Pressure Stated Complaint: HIGH BLOOD PRESSURE Time Seen by Provider: 12/11/18 15:50 Primary Care Provider: KATHARINA POSADA MD [Primary Care Provider] - Follow up as needed Mode of Arrival: Ambulatory Information source: Patient Notes: 28-year-old female presented to ED for dizziness lightheaded headache and fatigue. She has a history of high blood pressure and has not taken his medications in a while. She states the symptoms got much worse this morning when she woke up so she came to the emergency room. She states while she was they took her off the blood pressure medicines. He states she has not had any blood pressure medicine in a year and a half she was taken lisinopril 5 mg. She states she had eclampsia he was not restarted on her medicine because her practitioner left. She states she did not have a practitioner then she moved to [place] and then has moved back so she has not had any blood pressure medicine in about a year and a half. I have greeted and performed a rapid initial assessment of this patient. A comprehensive ED assessment and evaluation of the patient, analysis of test results and completion of medical decision making process will be conducted by an additional ED providers. TRAVEL OUTSIDE OF THE [place] IN LAST 30 DAYS: No - Related Data Allergies/Adverse Reactions: No Known Allergies Allergy (Verified 12/11/18 15:48) Past Medical History - Past Medical History Cardiac Medical History: Reports: Hx Hypertension Pulmonary Medical History: Reports: Hx Asthma Renal/ Medical History: Denies: Hx Peritoneal Dialysis Musculoskeltal Medical History: Reports Hx Musculoskeletal Trauma Traumatic Medical History: Reports: Hx Fractures - Foot Past Surgical History: Reports: Hx Section - Immunizations Hx Diphtheria, Pertussis, Tetanus Vaccination: Yes Physical Exam - Vital signs Vitals: Temp Pulse Resp BP Pulse Ox 98.3 F 76 16 172/108 H 100 12/11/18 15:28 12/11/18 15:28 12/11/18 15:28 12/11/18 15:28 12/11/18 15:28 Course - Vital Signs Vital signs: Temp Pulse Resp BP Pulse Ox 98.3 F 76 16 172/108 H 100 12/11/18 15:28 12/11/18 15:28 12/11/18 15:28 12/11/18 15:28 12/11/18 15:28 Doctor's Discharge - Discharge Referrals: KATHARINA POSADA MD [Primary Care Provider] - Follow up as needed
[2018-12-11 16:54] LABS: ABSOLUTE EOSINOPHILS # (AUTO) 0.3 10^3/uL (0.0-0.6); ABSOLUTE LYMPHOCYTES (AUTO) 1.2 10^3/uL (0.5-4.7); ABSOLUTE MONOCYTES (AUTO) 0.5 10^3/uL (0.1-1.4); BASOPHILS % (AUTO) 0.4 % (0-2); EOSINOPHILS % (AUTO) 6.5 % (0-6); HEMATOCRIT 36.7 % (36.0-47.0); HEMOGLOBIN 12.4 g/dL (12.0-15.5); LYMPHOCYTES % (AUTO) 31.2 % (13-45); MEAN CORPUSCULAR HEMOGLOBIN 33.9 pg (27.0-33.4); MEAN CORPUSCULAR HGB CONC 33.9 g/dL (32.0-36.0); MEAN CORPUSCULAR VOLUME 100 fl (80-97); MONOCYTES % (AUTO) 11.7 % (3-13); PLATELET COUNT 260 10^3/uL (150-450); RED BLOOD COUNT 3.67 10^6/uL (3.72-5.28); RED CELL DISTRIBUTION WIDTH 13.4 % (11.5-14.0); SEGMENTED NEUTROPHILS % (AUTO) 50.2 % (42-78); TOTAL CELLS COUNTED % (AUTO) 100 %
[2018-12-11 16:57] LABS: APPEARANCE,URINE CLEAR; BILIRUBIN,URINE SMALL (NEGATIVE); GLUCOSE, URINE NEGATIVE (NEGATIVE); KETONES,URINE NEGATIVE (NEGATIVE); LEUKOCYTE ESTERASE,URINE NEGATIVE (NEGATIVE); NITRITE,URINE NEGATIVE (NEGATIVE); PROTEIN,URINE NEGATIVE (NEGATIVE); URINE SPECIFIC GRAVITY 1.023
[2018-12-11 17:00] LABS: ALBUMIN 3.8 g/dL (3.5-5.0); ALKALINE PHOSPHATASE 743 U/L (38-126); ANION GAP 8 (5-19); ASPARTATE AMINO TRANSFERASE 144 U/L (14-36); BILIRUBIN,DIRECT 0.9 mg/dL (0.0-0.4); BILIRUBIN,TOTAL 1.8 mg/dL (0.2-1.3); BLOOD UREA NITROGEN 10 mg/dL (7-20); CALCIUM 9.2 mg/dL (8.4-10.2); CARBON DIOXIDE 25 mmol/L (22-30); CHLORIDE 106 mmol/L (98-107); POTASSIUM 3.6 mmol/L (3.6-5.0); TOTAL PROTEIN 9.2 g/dL (6.3-8.2)
[2018-12-11 17:02] LABS: COLOR,URINE YELLOW
[2018-12-11 17:05] LABS: GLUCOSE 66 mg/dL (75-110)
--- NOTE | 2018-12-11 21:34 | ER Document Report ---
ED Blood Pressure Problem - General Chief Complaint: High Blood Pressure Stated Complaint: HIGH BLOOD PRESSURE Time Seen by Provider: 12/11/18 15:50 Primary Care Provider: [facility] [Provider Group] - Follow up in 3-5 days Mode of Arrival: Ambulatory Information source: Patient Notes: Patient presents complaining of dizziness lightheadedness and fatigue that started this morning. Patient states that she has felt like this in the past when her blood pressure has been elevated. Patient states that she has been off of her blood pressure medicine for about a year. Patient states that she got and her doctor took her off of her lisinopril. Patient denies any chest pain headache abdominal pain or back pain. Patient denies feeling lightheaded at this time. Patient is requesting to be restarted on her blood pressure medication. TRAVEL OUTSIDE OF THE [place] IN LAST 30 DAYS: No - HPI Patient complains to provider of: High blood pressure Onset: This morning Onset/Duration: Gradual Quality of pain: No pain Associated symptoms: Dizziness. denies: Blurred vision, Chest pain, Headache, Nausea, Syncope, Visual changes, Vomiting Similar symptoms previously: Yes Recently seen / treated by doctor: No - Related Data Allergies/Adverse Reactions: No Known Allergies Allergy (Verified 12/11/18 15:48) Past Medical History - General Information source: Patient - Social History Smoking Status: Current Every Day Smoker Chew tobacco use (# tins/day): No Smoking Education Provided: Yes Frequency of alcohol use: None Drug Abuse: Marijuana Occupation: [employer] Lives with: Family Family History: Reviewed & Not Pertinent Patient has suicidal ideation: No Patient has homicidal ideation: No - Past Medical History Cardiac Medical History: Reports: Hx Hypertension Pulmonary Medical History: Reports: Hx Asthma Renal/ Medical History: Denies: Hx Peritoneal Dialysis Musculoskeletal Medical History: Reports Hx Musculoskeletal Trauma Traumatic Medical History: Reports: Hx Fractures - Foot Past Surgical History: Reports: Hx Section - Immunizations Hx Diphtheria, Pertussis, Tetanus Vaccination: Yes Review of Systems - Review of Systems Constitutional: No symptoms reported. denies: Fever, Recent illness EENT: No symptoms reported Cardiovascular: Dizziness. denies: Chest pain Respiratory: No symptoms reported. denies: Cough, Short of breath Gastrointestinal: No symptoms reported. denies: Abdominal pain, Nausea, Vomiting Genitourinary: No symptoms reported Female Genitourinary: No symptoms reported Musculoskeletal: No symptoms reported. denies: Back pain, Neck pain Skin: No symptoms reported Hematologic/Lymphatic: No symptoms reported Neurological/Psychological: No symptoms reported. denies: Headaches Physical Exam - Vital signs Vitals: Temp Pulse Resp BP Pulse Ox 98.3 F 76 16 172/108 H 100 12/11/18 15:28 12/11/18 15:28 12/11/18 15:28 12/11/18 15:28 12/11/18 15:28 - General General appearance: Appears well, Alert In distress: None - HEENT Head: Normocephalic, Atraumatic Eyes: Normal Conjunctiva: Normal Pupils: PERRL Ears: Normal External canal: Normal Tympanic membrane: Normal Nasal: Normal Mouth/Lips: Normal Mucous membranes: Normal Neck: Normal, Supple. No: Lymphadenopathy, Meningismus - Respiratory Respiratory status: No respiratory distress Chest status: Nontender Breath sounds: Normal. No: Rales, Rhonchi, Stridor, Wheezing Chest palpation: Normal - Cardiovascular Rhythm: Regular Heart sounds: S1 appreciated, S2 appreciated - Abdominal Inspection: Normal Distension: No distension Bowel sounds: Normal Tenderness: Nontender. No: Hendricks's sign Organomegaly: No organomegaly - Back Back: Normal, Nontender. No: CVA tenderness - Extremities General upper extremity: Normal inspection, Normal ROM General lower extremity: Normal inspection, Normal ROM - Neurological Neuro grossly intact: Yes Cognition: Normal [place] Coma Scale Eye Opening: Spontaneous [place] Coma Scale Verbal: Oriented [place] Coma Scale Motor: Obeys Commands [place] Coma Scale Total: 15 - Psychological Associated symptoms: Normal affect, Normal mood - Skin Skin Temperature: Warm Skin Moisture: Dry Course - Re-evaluation Re-evalutation: 12/11/18 21:31 Patient presently denies any symptoms at this time. Patient is requesting to be restarted on her lisinopril. Patient states that she did have high blood pressure and she was taken off of her medicine when she was . Patient denies any headache chest abdominal or back pain. Patient presently denies any complaints. consulted with Dr. Brandon Reading patient's diagnostic evaluation including her elevated LFTs. Dr. Brandon advises outpatient follow-up with primary doctor for further evaluation and repeat check of her LFTs. Was advised of incidental finding of elevated liver function test. Patient states she does recall having her patternmaker wood mentioning this finding to her previously. Patient encouraged to see her doctor for recheck to give her a refill of her blood pressure medicine as well as make referrals to GI as needed and to recheck her LFTs. 12/11/18 21:40 - Vital Signs Vital signs: Temp Pulse Resp BP Pulse Ox 98.3 F 78 15 156/105 H 100 12/11/18 21:55 12/11/18 21:55 12/11/18 21:55 12/11/18 21:55 12/11/18 21:55 - Laboratory Result Diagrams: 12/11/18 16:18 12/11/18 16:18 Laboratory results interpreted by me: 12/11/18 12/11/18 12/11/18 16:18 16:18 16:18 RBC 3.67 L MCV 100 H MCH 33.9 H Eos % (Auto) 6.5 H Glucose 66 L Total Bilirubin 1.8 H Direct Bilirubin 0.9 H AST 144 H Alkaline Phosphatase 743 H Total Protein 9.2 H Urine Bilirubin SMALL H Urine Urobilinogen 4.0 H 12/12/18 02:03 Labs- Entire Visit 12/11/18 12/11/18 12/11/18 16:18 16:18 16:18 WBC 4.0 RBC 3.67 L Hgb 12.4 Hct 36.7 MCV 100 H MCH 33.9 H MCHC 33.9 RDW 13.4 Plt Count 260 Lymph % (Auto) 31.2 [place] % (Auto) 11.7 Eos % (Auto) 6.5 H Baso % (Auto) 0.4 Absolute Neuts (auto) 2.0 Absolute Lymphs (auto) 1.2 Absolute Monos (auto) 0.5 Absolute Eos (auto) 0.3 Absolute Basos (auto) 0.0 Seg Neutrophils % 50.2 Sodium 139.2 Potassium 3.6 Chloride 106 Carbon Dioxide 25 Anion Gap 8 BUN 10 Creatinine 0.99 Est GFR ( Amer) > 60 Est GFR (MDRD) Non-Af > 60 Glucose 66 L Calcium 9.2 Total Bilirubin 1.8 H Direct Bilirubin 0.9 H Neonat Total Bilirubin Not Reportable Neonat Direct Bilirubin Not Reportable Neonat Indirect Bili Not Reportable AST 144 H ALT 72 Alkaline Phosphatase 743 H Total Protein 9.2 H Albumin 3.8 Lipase 61.3 Serum HCG, Qual NEGATIVE Urine Color Urine Appearance Urine pH Ur Specific [place] Urine Protein Urine Glucose (UA) Urine Ketones Urine Blood Urine Nitrite Urine Bilirubin Urine Urobilinogen Ur Leukocyte Esterase Urine WBC (Auto) Urine RBC (Auto) Squamous Epi Cells Auto Urine Mucus (Auto) Urine Ascorbic Acid 12/11/18 16:18 WBC RBC Hgb Hct MCV MCH MCHC RDW Plt Count Lymph % (Auto) [place] % (Auto) Eos % (Auto) Baso % (Auto) Absolute Neuts (auto) Absolute Lymphs (auto) Absolute Monos (auto) Absolute Eos (auto) Absolute Basos (auto) Seg Neutrophils % Sodium Potassium Chloride Carbon Dioxide Anion Gap BUN Creatinine Est GFR ( Amer) Est GFR (MDRD) Non-Af Glucose Calcium Total Bilirubin Direct Bilirubin Neonat Total Bilirubin Neonat Direct Bilirubin Neonat Indirect Bili AST ALT Alkaline Phosphatase Total Protein Albumin Lipase Serum HCG, Qual Urine Color YELLOW Urine Appearance CLEAR Urine pH 6.0 Ur Specific [place] 1.023 Urine Protein NEGATIVE Urine Glucose (UA) NEGATIVE Urine Ketones NEGATIVE Urine Blood NEGATIVE Urine Nitrite NEGATIVE Urine Bilirubin SMALL H Urine Urobilinogen 4.0 H Ur Leukocyte Esterase NEGATIVE Urine WBC (Auto) 0 Urine RBC (Auto) 0 Squamous Epi Cells Auto 2 Urine Mucus (Auto) RARE Urine Ascorbic Acid NEGATIVE Discharge - Discharge Clinical Impression: Hypertension Qualifiers: Hypertension type: unspecified Qualified Code(s): I10 - Essential (primary) hypertension Condition: Stable Disposition: HOME, SELF-CARE Instructions: High Blood Pressure ([facility]) Additional Instructions: Return immediately for any new or worsening symptoms Followup with your primary care provider, call tomorrow to make a followup appointment Your liver function tests were abnormal today. Follow-up with your primary doctor for recheck. They can repeat this test for you. Your doctor may make a referral to a GI specialist for further evaluation. Prescriptions: Lisinopril [Prinivil] 5 mg PO DAILY #30 tablet Forms: Smoking Cessation Education, Return to Work Referrals: [facility] [Provider Group] - Follow up in 3-5 days
[2018-12-11 21:57] VITALS: BP 156/105
== END 2018-12-11 21:55 | disposition home or self-care (01) ==
LOC: ER 14:46
DX: I10 Essential (primary) hypertension (principal); R42 Dizziness and giddiness; R53.83 Other fatigue; R79.89 Other specified abnormal findings of blood chemistry; F17.200 Nicotine dependence, unspecified, uncomplicated
CPT/HCPCS: 36415; 80053; 81001; 83690; 84703; 85025; 99283

== ENCOUNTER 2020-03-02 11:00 | Emergency (ER) | payer MEDICAID ==
--- NOTE | 2020-03-02 12:23 | ER Document Report ---
ED Medical Screen (RME) - General Stated Complaint: ABDOMINAL PAIN/SWELLING, VAGINAL BLEEDING Time Seen by Provider: 03/02/20 12:17 Mode of Arrival: Wheelchair Information source: Patient Notes: HPI; 30-year-old female past medical history significant for ITP with a liver biopsy several months ago at [facility]. States she never got the results of the liver biopsy. Presents to the emergency room today complaining of pain at the biopsy site for the past week. Also states that her menstrual cycle has been ongoing for the past 2 weeks. Passing clots. Also states she has been having bleeding from her gums. PE: Alert and oriented x3. Lungs: Clear to auscultation without rales, rhonchi, wheezes. Heart: Regular rate rhythm without murmurs, rubs, gallops. I have greeted and performed a rapid initial assessment of this patient. A comprehensive ED assessment and evaluation of the patient, analysis of test results and completion of the medical decision making process will be conducted by additional ED providers. I have specifically instructed the patient or family members with the patient to immediately return to any nursing staff should anything change in the patient's condition or with their chief complaint. TRAVEL OUTSIDE OF THE [place] IN LAST 30 DAYS: No - Related Data Allergies/Adverse Reactions: No Known Allergies Allergy (Verified 03/02/20 12:13) Past Medical History - Past Medical History Cardiac Medical History: Reports: Hx Hypertension Pulmonary Medical History: Reports: Hx Asthma Renal/ Medical History: Denies: Hx Peritoneal Dialysis Musculoskeltal Medical History: Reports Hx Musculoskeletal Trauma Traumatic Medical History: Reports: Hx Fractures - Foot Past Surgical History: Reports: Hx Section - Immunizations Hx Diphtheria, Pertussis, Tetanus Vaccination: Yes Physical Exam - Vital signs Vitals: Temp Pulse Resp BP Pulse Ox 98.5 F 79 16 155/95 H 99 03/02/20 11:40 03/02/20 11:40 03/02/20 11:40 03/02/20 11:40 03/02/20 11:40 Course - Vital Signs Vital signs: Temp Pulse Resp BP Pulse Ox 98.5 F 79 16 155/95 H 99 03/02/20 11:40 03/02/20 11:40 03/02/20 11:40 03/02/20 11:40 03/02/20 11:40
--- NOTE | 2020-03-02 13:25 | RADIOLOGY REPORT (SQ) ---
EXAM DESCRIPTION: U/S NON OB PEL TV W/DOPPLER IMAGES COMPLETED DATE/TIME: 03/02/2020 1:01 pm REASON FOR STUDY: vaginal bleeding LMP 12/20/2019 COMPARISON: None. TECHNIQUE: Dynamic and static grayscale images acquired of the pelvis via transvaginal approach and recorded on PACS. Additional selected color Doppler and spectral images recorded. LIMITATIONS: None. FINDINGS: UTERUS: Contour normal. No mass. ENDOMETRIAL STRIPE: No focal or generalized thickening. No masses. CERVIX: 2.4 cm. No nabothian cysts. RIGHT OVARY AND DOPPLER: Normal size. No worrisome masses. Normal arterial vascular flow without evid ence for torsion. LEFT OVARY AND DOPPLER: Normal size. There is a complex area measuring 2.7 x 2.4 x 1.7 cm, possible collapsed or involuted cyst. 15 x 8 x 6 mm exophytic or paraovarian cyst. No worrisome masses. Norm al arterial vascular flow without evidence for torsion. FREE FLUID: None noted. OTHER: No other significant finding. MEASUREMENTS: UTERUS: 8.5 x 4.7 x 4.3 cm. ENDOMETRIAL STRIPE: 5 mm. RIGHT OVARY: 1.8 x 2.6 x 1.2 cm. LEFT OVARY: 4.1 x 2.7 x 2.1 cm. IMPRESSION: 1. There is complex area in the left ovary that may suggest an involuting cyst. Recomm end follow-up ultrasound in 6 to 12 weeks. 2. Small exophytic cyst on the left ovary. TECHNICAL DOCUMENTATION: JOB ID: [id number] 2010 [employer]- All Rights Reserved Rev-07/12 Reading location - IP/workstation name: [email or web address]
[2020-03-02 14:05] LABS: ABSOLUTE EOSINOPHILS # (AUTO) 0.2 10^3/uL (0.0-0.6); ABSOLUTE MONOCYTES (AUTO) 0.5 10^3/uL (0.1-1.4); ABSOLUTE NEUT (AUTO) 2.4 10^3/uL (1.7-8.2); BASOPHILS % (AUTO) 0.1 % (0-2); EOSINOPHILS % (AUTO) 4.7 % (0-6); HEMATOCRIT 40.3 % (36.0-47.0); HEMOGLOBIN 13.7 g/dL (12.0-15.5); LYMPHOCYTES % (AUTO) 24.3 % (13-45); MEAN CORPUSCULAR HEMOGLOBIN 33.2 pg (27.0-33.4); MEAN CORPUSCULAR VOLUME 98 fl (80-97); MONOCYTES % (AUTO) 11.9 % (3-13); PLATELET COUNT 158 10^3/uL (150-450); RED BLOOD COUNT 4.12 10^6/uL (3.72-5.28); RED CELL DISTRIBUTION WIDTH 12.4 % (11.5-14.0); TOTAL CELLS COUNTED % (AUTO) 100 %; WHITE BLOOD COUNT 4.1 10^3/uL (4.0-10.5)
[2020-03-02 14:25] LABS: ALBUMIN 4.1 g/dL (3.5-5.0); ALKALINE PHOSPHATASE 722 U/L (38-126); ANION GAP 7 (5-19); ASPARTATE AMINO TRANSFERASE 155 U/L (14-36); BILIRUBIN,DIRECT 0.7 mg/dL (0.0-0.4); BILIRUBIN,TOTAL 1.2 mg/dL (0.2-1.3); BLOOD UREA NITROGEN 15 mg/dL (7-20); CALCIUM 9.6 mg/dL (8.4-10.2); CARBON DIOXIDE 27 mmol/L (22-30); CHLORIDE 106 mmol/L (98-107); POTASSIUM 4.5 mmol/L (3.6-5.0); TOTAL PROTEIN 7.9 g/dL (6.3-8.2)
[2020-03-02 14:28] LABS: GLUCOSE 64 mg/dL (75-110)
[2020-03-02 17:36] LABS: INTERNATIONAL RATION (INR) 0.86; PROTHROMBIN TIME 11.9 SEC (11.4-15.4)
[2020-03-02] MEDS ORDERED: OXYCODONE HCL IR 5 MG TABLET PO ONE (19:22)
--- NOTE | 2020-03-02 19:28 | ER Document Report ---
ED General - General Chief Complaint: Vaginal Bleeding Stated Complaint: ABDOMINAL PAIN/SWELLING, VAGINAL BLEEDING Time Seen by Provider: 03/02/20 12:17 Primary Care Provider: JAYANT WOMACK DO [Primary Care Provider] - Follow up as needed Mode of Arrival: Wheelchair TRAVEL OUTSIDE OF THE [place] IN LAST 30 DAYS: No - HPI Notes: Patient is a 30-year-old female presents emergency department for evaluation. She has pain in her right upper quadrant, near the site of a liver biopsy that she had in the summer at [facility]. She has not found out the results of the liver biopsy. She states that the pain is flared over the last week, seems to be getting worse and. She also has a history of ITP. She states she has had vaginal bleeding for the last 2 weeks. She has been using tampons, only going through 3-4 tampons a day. She denies any lower pelvic pain or vaginal discharge. She said no fevers or chills. No nausea or vomiting. She is eating and drinking normally. Normal urination, normal bowel movements. - Related Data Allergies/Adverse Reactions: No Known Allergies Allergy (Verified 03/02/20 12:13) Home Medications: amlodipine Past Medical History - General Information source: Patient - Social History Smoking Status: Former Smoker Chew tobacco use (# tins/day): No Frequency of alcohol use: Occasional Drug Abuse: Marijuana Family History: Reviewed & Not Pertinent, DM, Hypertension - Medical History Medical History: Other - ITP - Past Medical History Cardiac Medical History: Reports: Hx Hypertension Pulmonary Medical History: Reports: Hx Asthma Renal/ Medical History: Denies: Hx Peritoneal Dialysis Musculoskeletal Medical History: Reports Hx Musculoskeletal Trauma Skin Medical History: Reports Hx Eczema Traumatic Medical History: Reports: Hx Fractures - Foot Past Surgical History: Reports: Hx Section - Immunizations Hx Diphtheria, Pertussis, Tetanus Vaccination: Yes Review of Systems - Review of Systems Constitutional: No symptoms reported EENT: No symptoms reported Cardiovascular: No symptoms reported Respiratory: No symptoms reported Gastrointestinal: See HPI Genitourinary: No symptoms reported Female Genitourinary: See HPI Musculoskeletal: No symptoms reported Skin: No symptoms reported Neurological/Psychological: No symptoms reported Physical Exam - Vital signs Vitals: Temp Pulse Resp BP Pulse Ox 98.5 F 79 16 155/95 H 99 03/02/20 11:40 03/02/20 11:40 03/02/20 11:40 03/02/20 11:40 03/02/20 11:40 - Notes Notes: Vital signs reviewed, please refer to chart. Head is normocephalic, atraumatic. Pupils equal round, reactive to light. Neck is supple without meningismus. Heart is regular rate and rhythm. Lungs are clear to auscultation bilaterally. Abdomen is soft, mildly tender in the right upper quadrant without rebound or guarding, with large ventral hernia secondary to diastases recti, small umbilical hernia, all nontender and easily reducible, normoactive bowel sounds throughout. Extremities without cyanosis, clubbing. Posterior calves are nontender. Peripheral pulses are equal. Skin is warm and dry. Extensive eczematous rash noted to bilateral upper extremities and anterior trunk. No secondary signs of infection. Patient is awake, alert, neurological exam is nonfocal. Course - Re-evaluation Re-evalutation: 03/02/20 19:24 Patient presents emergency department for evaluation. She was initially seen through triage. She had not been given anything for pain, I did order oxycodone. Her liver functions are still abnormal, but this is not new. She is already had a liver biopsy. I strongly encouraged her to follow-up with [facility] to find out the results of this biopsy. She voiced understanding. Otherwise she is given oxycodone for pain. Despite her vaginal bleeding her hemoglobin is normal. I encouraged her to follow-up with OB in regards to this. She also had a transvaginal ultrasound. This revealed what appears to be an involuting cyst on the left but follow-up ultrasound was recommended. I explained this to the patient and she voiced understanding to the need of further imaging. Otherwise, I will send her home with prescription strength anti-inflammatories. She is to return to the emergency department for worsening or new concerning symptoms of any sort. - Vital Signs Vital signs: Temp Pulse Resp BP Pulse Ox 98.5 F 79 16 155/95 H 99 03/02/20 11:40 03/02/20 11:40 03/02/20 11:40 03/02/20 11:40 03/02/20 11:40 - Laboratory Results Result Diagrams: 03/02/20 13:35 03/02/20 13:35 Laboratory Results Interpreted: 03/02/20 03/02/20 13:35 13:35 MCV 98 H Glucose 64 L Direct Bilirubin 0.7 H AST 155 H ALT 79 H Alkaline Phosphatase 722 H Critical Laboratory Results Reviewed: No Critical Results - Radiology Results Radiology Results Interpreted: 03/02/20 19:25 Transvaginal US 03/02/20 12:21 IMPRESSION: 1. There is complex area in the left ovary that may suggest an involuting cyst. Recommend follow-up ultrasound in 6 to 12 weeks. 2. Small exophytic cyst on the left ovary. Critical Radiology Results Reviewed: No Critical Results Discharge - Discharge Clinical Impression: Left ovarian cyst, Abnormal vaginal bleeding, Elevated liver enzymes Condition: Stable Disposition: HOME, SELF-CARE Instructions: Vaginal Bleeding ([facility]), Ovarian Cyst ([facility]) Additional Instructions: Your platelet count was normal here today. Your liver enzymes are still elevated, but not more so than they have been in the past. Please follow-up with Corby Alcantar and determine the results of your liver biopsy. You do have an ovarian cyst noted on your transvaginal ultrasound. A follow-up exam is recommended in 6 to 12 weeks. You can follow-up with your DOG BEHAVIORIST regarding this as well as the abnormal vaginal bleeding. If you develop worsening bleeding, dizziness, chest pain, shortness of breath, or any other new or concerning symptoms, please return immediately to the emergency department for evaluation. Referrals: JAYANT WOMACK, DO [Primary Care Provider] - Follow up as needed
[2020-03-02 20:09] VITALS: BP 161/109
== END 2020-03-02 20:20 | disposition home or self-care (01) ==
LOC: ER 11:00
DX: N83.202 Unspecified ovarian cyst, left side (principal); R74.8 Abnormal levels of other serum enzymes; N93.8 Other specified abnormal uterine and vaginal bleeding; R10.11 Right upper quadrant pain; D69.3 Immune thrombocytopenic purpura; R21 Rash and other nonspecific skin eruption; I10 Essential (primary) hypertension
CPT/HCPCS: 99284; 36415; 84703; 85025; 85610; 80053; 76830; 93976; J3490